=== PATIENT | female | born 1965 ===

== ENCOUNTER 2017-06-26 10:11 | Emergency (ER) | payer OTHER ==
[2017-06-26] MEDS ORDERED: Albuterol-Ipratrop 3 mg / 0.5 (3 ml) UD ONE (10:33)
[2017-06-26] MEDS ORDERED: Albuterol-Ipratrop 3 mg / 0.5 (3 ml) UD INH STA ×3 (10:56→10:57)
--- NOTE | 2017-06-26 11:28 | C.PDOC ---
History Of Present Illness 52-year-old female, PMHx includes asthma, presents to the emergency department with complaints of coughing and wheezing, that started yesterday. Patient has never been intubated in past. States this feels similar to prior asthma exacerbation. Denies nausea/vomiting, fevers, chills, or any other associated symptoms. No other complaints at this time. Time Seen by Provider: 06/26/17 10:36 Chief Complaint (Nursing): Shortness Of Breath History Per: Patient History/Exam Limitations: no limitations Past Medical History Reviewed: Historical Data, Nursing Documentation, Vital Signs Vital Signs: Last Vital Signs Temp 97.7 F 06/26/17 10:14 Pulse 101 H 06/26/17 10:14 Resp 23 06/26/17 10:14 BP 155/98 H 06/26/17 10:14 Pulse Ox 99 06/26/17 11:29 - Medical History PMH: Asthma, Depression, Diabetes, Fractures (right ankle), HTN, Hypercholesterolemia Denies: Chronic Kidney Disease - [facility] Procedures APPLICATION OF SPLINT (03/21/14) Family History: States: No Known Family Hx - Social History Hx Tobacco Use: No Hx Alcohol Use: No Hx Substance Use: No - Immunization History Hx Tetanus Toxoid Vaccination: Yes Hx Influenza Vaccination: Yes Hx Pneumococcal Vaccination: Yes Review Of Systems Except As Marked, All Systems Reviewed And Found Negative. Constitutional: Negative for: Fever, Chills Cardiovascular: Negative for: Chest Pain Respiratory: Positive for: Cough, Wheezing Gastrointestinal: Negative for: Nausea, Vomiting Musculoskeletal: Negative for: Back Pain Neurological: Negative for: Weakness, Headache, Dizziness Physical Exam - Physical Exam Appears: Non-toxic, No Acute Distress, Other (speaking in full sentences) Skin: Warm, Dry, No Rash Head: Atraumatic, Normacephalic Eye(s): bilateral: Normal Inspection, PERRL Nose: Normal Oral Mucosa: Moist Lips: Normal Appearing Neck: Normal ROM Cardiovascular: Rhythm Regular, No Murmur Respiratory: No Accessory Muscle Use, Wheezing (scattered) Gastrointestinal/Abdominal: Soft, No Tenderness Extremity: Normal ROM Neurological/Psych: Oriented x3, Normal Speech ED Course And Treatment O2 Sat by Pulse Oximetry: 99 Medical Decision Making Medical Decision Making: mild asthma exacerbation - roberto katz reasess 1150: pt states she feels improved. asking for dc. lung clear. does not wish for further obs in hospital. has nebs at home. Disposition - Disposition Referrals: [facility] [Outside] [email or web address] [Outside] [facility] [Outside] Disposition: HOME/ ROUTINE Disposition Time: 11:52 Condition: STABLE Additional Instructions: please follow up with your doctor. return to er with worsening symptoms or concerns. Prescriptions: Prednisone 50 mg PO DAILY #4 tablet Instructions: Asthma (ED) Forms: [employer] (Bhutanese) - Clinical Impression Clinical Impression: Asthma - Scribe Statement The provider has reviewed the documentation as recorded by the Scribe (Deya Guevara) All medical record entries made by the Scribe were at my direction and personally dictated by me. I have reviewed the chart and agree that the record accurately reflects my personal performance of the history, physical exam, medical decision making, and the department course for this patient. I have also personally directed, reviewed, and agree with the discharge instructions and disposition.
--- NOTE | 2017-06-26 11:53 | RAD ---
HISTORY: COMPARISON: No prior. TECHNIQUE: Chest PA and lateral FINDINGS: LINES AND TUBES: None. LUNG AND PLEURA: The lungs are well inflated and clear. HEART AND MEDIASTINUM: The heart is not enlarged. The hilar and mediastinal contours are within normal limits. SKELETAL STRUCTURES: The bony structures are within normal limits for the patient's age. VISUALIZED UPPER ABDOMEN: Normal. OTHER FINDINGS: Again seen is a small hiatal hernia. IMPRESSION: No active pulmonary disease.
[2017-06-26 11:57] VITALS: BP 140/88; PULSE 90; RESP 18; TEMP 98; O2SAT 98
== END 2017-06-26 11:58 | disposition home or self-care (01) ==
LOC: C.ER 10:11
DX: J45.909 Unspecified asthma, uncomplicated (principal)

== ENCOUNTER 2017-07-12 13:17 | Inpatient (IN) | payer OTHER ==
[2017-07-12] MEDS ORDERED: Albuterol-Ipratrop 3 mg / 0.5 (3 ml) UD INH STA ×3 (13:45→13:46)
[2017-07-12] MEDS ORDERED: MethylPREDNISolone 40 mg Vial IVP STA (13:46)
--- NOTE | 2017-07-12 13:57 | C.PDOC ---
History Of Present Illness 52 y/o female, past history of asthma, presents to ED with c/o wheezing and cough, worsening over the last few days. Patient was seen in this ER for similar symptoms yesterday. Notes she finished her prednisone. Denies fever, chills, nausea, vomiting, chest pain, or other associated symptoms. Time Seen by Provider: 07/12/17 13:36 Chief Complaint (Nursing): Cough, Cold, Congestion History Per: Patient History/Exam Limitations: no limitations Onset/Duration Of Symptoms: Days Current Symptoms Are (Timing): Worse Current Respiratory Medications: See Home Med List Associated Symptoms: denies: Fever, Chills, Chest Pain, Bloody Cough, Dizziness Past Medical History Reviewed: Historical Data, Nursing Documentation, Vital Signs Vital Signs: Last Vital Signs Temp 98.1 F 07/12/17 13:33 Pulse 97 H 07/12/17 13:33 Resp 22 07/12/17 13:33 BP 147/83 07/12/17 13:33 Pulse Ox 97 07/12/17 15:39 - Medical History PMH: Asthma, Depression, Diabetes, Fractures (right ankle), HTN, Hypercholesterolemia - [facility] Procedures APPLICATION OF SPLINT (03/21/14) Family History: States: Unknown Family Hx - Social History Hx Tobacco Use: No Hx Alcohol Use: No Hx Substance Use: No - Immunization History Hx Tetanus Toxoid Vaccination: Yes Hx Influenza Vaccination: Yes Hx Pneumococcal Vaccination: Yes Review Of Systems Except As Marked, All Systems Reviewed And Found Negative. Constitutional: Negative for: Fever, Chills Respiratory: Positive for: Cough, Wheezing. Negative for: Shortness of Breath Gastrointestinal: Negative for: Nausea, Vomiting, Abdominal Pain Skin: Negative for: Rash Neurological: Negative for: Headache, Dizziness Physical Exam - Physical Exam Appears: Non-toxic, No Acute Distress Skin: Normal Color, Warm, Dry Head: Atraumatic, Normacephalic Oral Mucosa: Moist Chest: Symmetrical Cardiovascular: Rhythm Regular Respiratory: Normal Breath Sounds, No Rales, No Rhonchi, Wheezing Gastrointestinal/Abdominal: Normal Exam, Soft, No Tenderness, No Rebound Back: Normal Inspection Extremity: Normal ROM, Capillary Refill (< 2 sec.) Neurological/Psych: Oriented x3, Normal Speech, Normal Cognition ED Course And Treatment - Laboratory Results Result Diagrams: 07/12/17 14:03 07/12/17 14:03 O2 Sat by Pulse Oximetry: 97 (RA) Pulse Ox Interpretation: Normal - Radiology CXR: Interpreted by Me CXR Interpretation: Yes: No Acute Disease Medical Decision Making Medical Decision Making: Plan: CxR, labs, duonebs, prednisone Progress: Spoke with Dr. Lopez, who request to Dr. Nahum Delcid for admission. Case discussed with Dr. Nahum Delcid who accepts pt under his service. Disposition - Disposition Disposition: HOSPITALIZED Disposition Time: 16:04 Condition: STABLE - Clinical Impression Clinical Impression: Asthma - Scribe Statement The provider has reviewed the documentation as recorded by the Scribe SM All medical record entries made by the Scribe were at my direction and personally dictated by me. I have reviewed the chart and agree that the record accurately reflects my personal performance of the history, physical exam, medical decision making, and the department course for this patient. I have also personally directed, reviewed, and agree with the discharge instructions and disposition. Decision To Admit - Pt Status Changed To: Hospital Disposition Of: Inpatient - Admit Certification Admit to Inpatient:: After my assessment, the patient will require hospitalization for at least two midnights. This is because of the severity of symptoms shown, intensity of services needed, and/or the medical risk in this patient being treated as an outpatient. - InPatient: Physician Admission Certification: I certify that this patient requires 2 or more midnights of care for the following reason:: pt with asthma, not imnproving oupt, needs iv steriods, persistent wheezing. - . Bed Request Type: Regular Admitting Physician: Dre Delcid Patient Diagnosis: Asthma
[2017-07-12] MEDS ORDERED: Albuterol-Ipratrop 3 mg / 0.5 (3 ml) UD ONE ×2 (14:03→20:38)
--- NOTE | 2017-07-12 14:08 | RAD ---
HISTORY: SOB COMPARISON: Chest radiograph dated 06/26/2017. TECHNIQUE: Chest PA and lateral FINDINGS: LUNGS: No active pulmonary disease. PLEURA: No significant pleural effusion identified. No pneumothorax apparent. CARDIOVASCULAR: Normal. OSSEOUS STRUCTURES: No significant abnormalities. VISUALIZED UPPER ABDOMEN: Normal. OTHER FINDINGS: Small to moderate hiatal hernia redemonstrated. IMPRESSION: No active disease.
[2017-07-12 14:12] LABS: BASO # 0.1 K/uL (0.0-0.2); BASO % 0.5 % (0.0-2.0); EOS % 7.5 % (0.0-4.0); HEMATOCRIT 35.6 % (34.0-47.0); LYMPH # 3.2 K/uL (1.0-4.3); LYMPH % 22.6 % (20.0-40.0); MEAN CELL VOLUME 79.8 fL (81.0-99.0); MEAN CORPUSCULAR HEMOGLOBIN 25.4 pg (27.0-31.0); MEAN CORPUSCULAR HGB CONC 31.9 g/dL (33.0-37.0); MEAN PLATELET VOLUME 9.3 fL (7.2-11.7); MONO # 0.5 K/uL (0.0-0.8); MONO % 3.9 % (0.0-10.0)
[2017-07-12 14:22] LABS: INR 0.9
[2017-07-12 14:28] LABS: ALKALINE PHOSPHATASE 95 U/L (38-126); ALT/SGPT 35 U/L (9-52); AST/SGOT 16 U/L (14-36); BILIRUBIN,TOTAL 0.4 mg/dL (0.2-1.3); BLOOD UREA NITROGEN 10 mg/dL (7-17); CALCIUM 8.3 mg/dl (8.6-10.4); CARBON DIOXIDE 25 mmol/L (22-30); CHLORIDE 99 mmol/L (98-107); GFR AFRICAN-AMERICAN > 60; GLUCOSE,RANDOM 217 mg/dL (65-105); POTASSIUM 3.7 mmol/L (3.6-5.2); SODIUM 133 mmol/L (132-148); TOTAL PROTEIN 8.3 g/dL (6.3-8.3)
[2017-07-12 14:31] LABS: ALB/GLOB RATIO 0.9 (1.0-2.1)
[2017-07-12 16:29] LABS: RBC URINE 22 /hpf (0-3); URINE BACTERIA RARE (<OCC); URINE BILIRUBIN NEGATIVE (NEGATIVE); URINE BLOOD 2+ (NEGATIVE); URINE COLOR Yellow (YELLOW); URINE GLUCOSE (UA) 3+ mg/dL (Normal); URINE KETONE 1+ mg/dL (NEGATIVE); URINE LEUKOCYTE ESTERASE NEG Leu/uL (Negative); URINE PROTEIN NEGATIVE (NEGATIVE); URINE UROBILINOGEN NORMAL mg/dL (0.2-1.0); WBC URINE 2 /hpf (0-5)
--- NOTE | 2017-07-12 16:31 | CP.PCM.HP ---
History of Present Illness - History of Present Illness History of Present Illness: A 52-year-old female with PMHasthma, depression, DM, HTN and hypercholesterolemia presents to the ER for evaluation of coughing. C/O - coughing for the last few days. Insidious in onset, progressive, 10-12 bouts per day, dry. C status O displeasing for the last few days. Associated with coughing. Patient states that she was seen in the ER yesterday for similar complaints. No C/O - fever, chills, nausea, vomiting, chest pain. Present on Admission - Present on Admission Any Indicators Present on Admission: No Past Patient History - Past Medical History & Family History Past Medical History?: Yes - Past Social History Smoking Status: Never Smoked - CARDIAC Hx Hypercholesterolemia: Yes Hx Hypertension: Yes - PULMONARY Hx Asthma: Yes - NEUROLOGICAL Hx Neurological Disorder: No - HEENT Hx HEENT Problems: No - RENAL Hx Chronic Kidney Disease: No - ENDOCRINE/METABOLIC Hx Endocrine Disorders: Yes Hx Diabetes Mellitus Type 2: Yes - HEMATOLOGICAL/ONCOLOGICAL Hx Blood Disorders: No - INTEGUMENTARY Hx Dermatological Problems: No - MUSCULOSKELETAL/RHEUMATOLOGICAL Hx Fractures: Yes (right ankle) - GASTROINTESTINAL Hx Gastrointestinal Disorders: No - GENITOURINARY/GYNECOLOGICAL Hx Genitourinary Disorders: No - PSYCHIATRIC Hx Depression: Yes Hx Substance Use: No - SURGICAL HISTORY Other/Comment: right breast biopsy - ANESTHESIA Hx Anesthesia: Yes Hx Anesthesia Reactions: No Hx Malignant Hyperthermia: No Meds Allergies/Adverse Reactions: Allergies Allergy/AdvReac Type Severity Reaction Status Date / Time No Known Allergies Allergy Verified 07/12/17 13:35 Physical Exam - Constitutional Appears: Well - Head Exam Head Exam: ATRAUMATIC, NORMAL INSPECTION, NORMOCEPHALIC - Eye Exam Eye Exam: EOMI, Normal appearance, PERRL Pupil Exam: NORMAL ACCOMODATION, PERRL - ENT Exam ENT Exam: Mucous Membranes Moist, Normal Exam - Neck Exam Neck exam: Positive for: Normal Inspection - Respiratory Exam Respiratory Exam: Decreased Breath Sounds - Cardiovascular Exam Cardiovascular Exam: REGULAR RHYTHM, +S1, +S2 - GI/Abdominal Exam GI & Abdominal Exam: Diminished Bowel Sounds, Soft - Rectal Exam Rectal Exam: Deferred Results - Vital Signs Recent Vital Signs: Last Vital Signs Temp 98.1 F 07/12/17 13:33 Pulse 97 H 07/12/17 13:33 Resp 22 07/12/17 13:33 BP 147/83 07/12/17 13:33 Pulse Ox 97 07/12/17 16:05 - Labs Result Diagrams: 07/14/17 08:02 07/14/17 08:02 Labs: Laboratory Results - last 24 hr 07/12/17 07/12/17 07/12/17 13:44 14:03 14:03 WBC 14.0 H RBC 4.47 Hgb 11.4 Hct 35.6 MCV 79.8 L D MCH 25.4 L MCHC 31.9 L RDW 16.0 H Plt Count 288 MPV 9.3 Neut % (Auto) 65.5 Lymph % (Auto) 22.6 [place] % (Auto) 3.9 Eos % (Auto) 7.5 H Baso % (Auto) 0.5 Neut # 9.2 H Lymph # 3.2 [place] # 0.5 Eos # 1.0 H Baso # 0.1 PT 10.4 INR 0.9 APTT 27 Sodium Potassium Chloride Carbon Dioxide Anion Gap BUN Creatinine Est GFR ( Amer) Est GFR (Non-Af Amer) POC Glucose (mg/dL) 257 H Random Glucose Calcium Total Bilirubin AST ALT Alkaline Phosphatase Total Protein Albumin Globulin Albumin/Globulin Ratio Urine HCG, Qual 07/12/17 07/12/17 14:03 15:55 WBC RBC Hgb Hct MCV MCH MCHC RDW Plt Count MPV Neut % (Auto) Lymph % (Auto) [place] % (Auto) Eos % (Auto) Baso % (Auto) Neut # Lymph # [place] # Eos # Baso # PT INR APTT Sodium 133 Potassium 3.7 Chloride 99 Carbon Dioxide 25 Anion Gap 13 BUN 10 Creatinine 0.5 L Est GFR ( Amer) > 60 Est GFR (Non-Af Amer) > 60 POC Glucose (mg/dL) Random Glucose 217 H Calcium 8.3 L Total Bilirubin 0.4 AST 16 ALT 35 Alkaline Phosphatase 95 Total Protein 8.3 Albumin 4.0 Globulin 4.3 H Albumin/Globulin Ratio 0.9 L Urine HCG, Qual Negative
[2017-07-12] MEDS: Albuterol-Ipratrop 3 mg / 0.5 (3 ml) UD INH SCH (20:35)
[2017-07-12] MEDS: Fluticasone-Salmeterol 250-50mcg Diskus INH SCH (20:35)
[2017-07-12 21:19] VITALS: RESP 20
[2017-07-12] MEDS ORDERED: (Novolog) Insulin Aspart, Recombinant 100 u/ml 10 ml vial SC ONE (21:30)
[2017-07-12] MEDS: MethylPREDNISolone 40 mg Vial IVP SCH (22:18)
[2017-07-12] MEDS ORDERED: Albuterol HFA 90 mcg/actuation (8 g) IH SCH (23:45)
[2017-07-12] MEDS ORDERED: (Lantus) Insulin Glargine, Recombinant SC STA (23:49)
[2017-07-13] MEDS: Albuterol-Ipratrop 3 mg / 0.5 (3 ml) UD INH SCH ×4 (02:13→20:06)
[2017-07-13] MEDS: MethylPREDNISolone 40 mg Vial IVP SCH ×3 (06:20→22:11)
--- NOTE | 2017-07-13 06:52 | CON ---
LOCATION: In the room 370. HISTORY OF PRESENT ILLNESS: This is a 52-year-old female with known history of type 2 insulin-requiring diabetes, presenting here with acute exacerbation of asthmatic bronchitis and started on IV steroid therapy as given with supervening hyperglycemic accelerations thereof. PAST MEDICAL HISTORY: As mentioned above, history of type 2 diabetes, currently on a combination of NPH given as 20 units at bedtime and glipizide given as 10 mg b.i.d. before meals as ordered. History of hypertension and dyslipidemia. FAMILY HISTORY: Positive for diabetes and hypertension. SOCIAL HISTORY: The patient has supportive family. No known substance use. REVIEW OF SYSTEMS: As mentioned above. Admits to generalized body weakness with easy fatigability and tiredness and suboptimal energy level. Also admits to episodic bouts of dizziness and lightheadedness, worse on the day of admission. No chest pains, palpitations, or PNDs. Her oral intake has been variable with nausea, dyspepsia and episodic vomiting episodes. Also admits to marked polyuria, nocturia, polydipsia, and about a 5-pound or so weight loss. We will obtain serum chemistries and supplement accordingly as needed. I also discussed with the patient at bedside regarding the need for home glucose monitoring to optimize metabolic control. We will follow with you. Mariluz Medrano MD
[2017-07-13] MEDS ORDERED: (Novolog) Insulin Aspart, Recombinant 100 u/ml 10 ml vial SC SCH ×2 (07:30)
--- NOTE | 2017-07-13 07:38 | CON ---
LOCATION: In room 370. HISTORY OF PRESENT ILLNESS: This is a 52-year-old female with known history of type 2 insulin-requiring diabetes, presenting here with acute exacerbation of asthmatic bronchitis and started on IV steroid therapy with supervening hyperglycemic accelerations, and is now being referred for diabetic evaluation and management. PAST MEDICAL HISTORY: As mentioned above, history of type 2 insulin-requiring diabetes, currently on a combination of NPH given as 20 units at bedtime with glipizide given as 10 mg once daily as ordered, history of hypertension and dyslipidemia, history of chronic asthmatic bronchitis with frequent admissions for exacerbations of the same. FAMILY HISTORY: Positive for diabetes and hypertension. SOCIAL HISTORY: The patient has a supportive family. No known substance use. REVIEW OF SYSTEMS: As mentioned above, admits to generalized body weakness with episodic bouts of dizziness and lightheadedness, worse on the day of admission. No chest pains, palpitations or PNDs, but admits to progressive shortness of breath, initially on exertion and then at rest, with paroxysmal nocturnal dyspnea. Her oral intake has been variable with nausea, dyspepsia and vague upper abdominal pains. Also admits to marked polyuria, nocturia, polydipsia, and about a 5-pound or so weight loss. PHYSICAL EXAMINATION GENERAL: This is an overweight female, in no apparent distress. VITAL SIGNS: Blood pressure 140/90, pulse of 100 beats per minute and regular, temperature 99, respirations 20. Height is 5 feet 4 inches, weight is 190 pounds. HEENT: Head is normocephalic. Eyes anicteric with pink conjunctivae. Funduscopy not possible at this time. Ears, nose, and throat otherwise normal. NECK: Supple. Thyroid gland is normal in size. No carotid bruits or cervical adenopathy. CARDIOPULMONARY: Adynamic precordium. S1 and S2 is rapid and regular. LUNGS: Show scattered rhonchi and bilateral expiratory wheezing. ABDOMEN: Flat, soft with positive bowel sounds. EXTREMITIES: No peripheral edema. Pulses are +2 bilaterally. LABORATORY DATA: The latest random glucose now is over 500 mg/dL. The latest chemistry showed BUN of 10, sodium 133, potassium 3.7, chloride 99, CO2 of 25, glucose 217, and creatinine 0.5. ASSESSMENT: This is a 52-year-old female with uncontrolled and decompensated type 2 insulin-requiring diabetes, presenting here with acute exacerbation of asthmatic bronchitis with marked hyperglycemic accelerations related to the intercurrent intravenous steroid therapy with increased insulin resistance thereof. PLAN OF MANAGEMENT: We will modify the current insulin regimen and switch her over to a more basal and bolus insulin drug combination, which is physiologic, and start her with Lantus given as 30 units subcu to start tonight, and we will increase to 40 units subcu at bedtime daily as ordered. We will also add NovoLog given as 12 units subcu t.i.d. before meals to start at breakfast time tomorrow morning as ordered. We will modify the coverage scale to obviate hypoglycemia and detailed orders have been given. A hemoglobin A1c will be done to confirm tight glycemic control is ordered. We will follow. Mariluz Medrano MD
[2017-07-13] MEDS: (Novolog) Insulin Aspart, Recombinant 100 u/ml 10 ml vial SC SCH ×7 (08:40→22:07)
[2017-07-13] MEDS: Fluticasone-Salmeterol 250-50mcg Diskus INH SCH ×2 (10:02→20:07)
[2017-07-13] MEDS: Enoxaparin 40 mg Syringe SC SCH (10:44)
[2017-07-13] MEDS: Pantoprazole 40 mg EC Tab PO SCH (10:45)
[2017-07-13] MEDS: GlipiZIDE 10 mg SR Tab PO SCH (10:45)
[2017-07-13] MEDS: Azithromycin 500 MG in Sodium Chloride 0.9% 250 ML IVPB SCH (10:50)
--- NOTE | 2017-07-13 12:40 | PN ---
ENDO FOLLOWUP NOTE LOCATION: In room 370. SUBJECTIVE: This is a 52-year-old female with recent uncontrolled type 2 insulin-requiring diabetes, presenting here with acute exacerbation of asthmatic bronchitis and started on IV steroid therapy with supervening hyperglycemic accelerations as expected thereof. The glucose levels today have ranged from 351 to 386 and 468 mg/dL. The latest chemistry showed a BUN of 10, sodium 133, potassium 3.7, chloride 99, CO2 of 25, glucose 217, and creatinine 0.5. So at this time, we will continue the same basal and bolus insulin regimen to allow per dosing equilibration and continue the low-dose correction scale using NovoLog insulin as given. We will also increase the NovoLog to 20 units subcu t.i.d. before meals, to start at dinnertime today as ordered. We will also continue the basal insulin given as Lantus at 40 units subcu at bedtime daily as given. We will titrate incrementally as indicated to optimize metabolic control. We will follow. Mariluz Medrano MD
--- NOTE | 2017-07-13 16:51 | CP.PCM.CON ---
History of Present Illness - History of Present Illness History of Present Illness: Reason for consultation: Asthma 52 y/o F with a PMHx of Asthma and DMII presents with asthma exacerbation and dry cough. Patient has been hospitalized multiple times in the past for asthma but never intubated. Patient used nebulizer treatment at home but did not help. Patient was seen and examined at bedside. Patient sitting comfortably. Patient says she has a dry cough but denies fever, chills, SOB, or chest pain at this time. Patient was not able to sleep last night as she felt very "jittery and awake." Patient reports she often has asthma exacerbations during winter. Patient denies headache, dizziness, n/v, constipation, diarrhea, abdominal pain , and dysuria. Allergies: NKDA PMHx: Diabetes, Asthma PSHx: breast biopsy SocialHx: Patient is former smoker quit 15 years ago (1 pack a day for 15 years ). Denies alcohol and drug use. Review of Systems - Review of Systems All systems: reviewed and no additional remarkable complaints except (shortness of breath and cough) Past Patient History - Past Medical History & Family History Past Medical History?: Yes - Past Social History Smoking Status: Former Smoker - CARDIAC Hx Cardiac Disorders: Yes Hx Hypercholesterolemia: Yes Hx Hypertension: Yes - PULMONARY Hx Respiratory Disorders: Yes Hx Asthma: Yes - NEUROLOGICAL Hx Neurological Disorder: No - HEENT Hx HEENT Problems: No - RENAL Hx Chronic Kidney Disease: No - ENDOCRINE/METABOLIC Hx Endocrine Disorders: Yes Hx Diabetes Mellitus Type 2: Yes - HEMATOLOGICAL/ONCOLOGICAL Hx Blood Disorders: No - INTEGUMENTARY Hx Dermatological Problems: No - MUSCULOSKELETAL/RHEUMATOLOGICAL Hx Musculoskeletal Disorders: Yes Hx Falls: No Hx Fractures: Yes (right ankle) - GASTROINTESTINAL Hx Gastrointestinal Disorders: No - GENITOURINARY/GYNECOLOGICAL Hx Genitourinary Disorders: No - PSYCHIATRIC Hx Psychophysiologic Disorder: Yes Hx Depression: Yes Hx Substance Use: No - SURGICAL HISTORY Hx Surgeries: Yes Hx Tubal Ligation: Yes Other/Comment: right breast biopsy - ANESTHESIA Hx Anesthesia: Yes Hx Anesthesia Reactions: No Hx Malignant Hyperthermia: No Meds Allergies/Adverse Reactions: Allergies Allergy/AdvReac Type Severity Reaction Status Date / Time No Known Allergies Allergy Verified 07/12/17 13:35 - Medications Medications: Current Medications Acetaminophen (Tylenol 325mg Tab) 650 mg PO Q8 PRN PRN Reason: pain Last Admin: 07/12/17 21:28 Dose: 650 mg Albuterol (Ventolin Hfa 90 Mcg/Actuation (8 G)) 1 puff IH RQ6 [facility] Albuterol/Ipratropium (Duoneb 3 Mg/0.5 Mg (3 Ml) Ud) 3 ml INH RQ6 [facility] Last Admin: 07/13/17 13:25 Dose: 3 ml Amlodipine Besylate (Norvasc) 5 mg PO DAILY [facility] Last Admin: 07/13/17 10:45 Dose: 5 mg Aspirin (Ecotrin) 81 mg PO DAILY [facility] Last Admin: 07/13/17 10:45 Dose: 81 mg Enoxaparin Sodium (Lovenox) 40 mg SC DAILY [facility] Last Admin: 07/13/17 10:44 Dose: 40 mg Furosemide (Lasix) 40 mg IVP DAILY [facility] Last Admin: 07/13/17 10:45 Dose: 40 mg Glipizide (Glucotrol Xl) 10 mg PO DAILY [facility] Last Admin: 07/13/17 10:45 Dose: 10 mg Azithromycin 500 mg/ Sodium (Chloride) 250 mls @ 250 mls/hr IVPB DAILY [facility] Last Admin: 07/13/17 10:50 Dose: 250 mls/hr Insulin Aspart (Novolog) 0 unit SC ACHS [facility] PRN Reason: Protocol Last Admin: 07/13/17 12:32 Dose: 6 unit Insulin Aspart (Novolog) 20 unit SC AC [facility]H Insulin Glargine (Lantus) 40 unit SC HS [facility] Methylprednisolone (Solu-Medrol) 20 mg IVP Q8 [facility] Last Admin: 07/13/17 14:33 Dose: 20 mg Montelukast Sodium (Singulair) 10 mg PO HS [facility] Last Admin: 07/12/17 22:18 Dose: 10 mg Pantoprazole Sodium (Protonix Ec Tab) 40 mg PO DAILY [facility] Last Admin: 07/13/17 10:45 Dose: 40 mg Fluticasone/Salmeterol (Advair Diskus 250/50) 1 puff INH RQ12 [facility] Last Admin: 07/13/17 10:02 Dose: Not Given Physical Exam - Constitutional Appears: No Acute Distress - Head Exam Head Exam: ATRAUMATIC, NORMOCEPHALIC - Eye Exam Eye Exam: Normal appearance - ENT Exam ENT Exam: Mucous Membranes Moist - Neck Exam Neck exam: Positive for: Normal Inspection - Respiratory Exam Respiratory Exam: Rhonchi, Wheezes - Cardiovascular Exam Cardiovascular Exam: REGULAR RHYTHM - GI/Abdominal Exam GI & Abdominal Exam: Normal Bowel Sounds, Soft - Extremities Exam Extremities exam: Positive for: normal inspection - Neurological Exam Neurological exam: Alert, Oriented x3 Results - Vital Signs Recent Vital Signs: Last Vital Signs Temp 98 F 07/13/17 15:55 Pulse 111 H 07/13/17 15:55 Resp 20 07/13/17 15:55 BP 119/71 07/13/17 15:55 Pulse Ox 98 07/13/17 15:55 - Labs Result Diagrams: 07/14/17 08:02 07/14/17 08:02 Labs: Laboratory Results - last 24 hr 07/12/17 07/13/17 07/13/17 21:26 00:06 07:24 POC Glucose (mg/dL) > 500 H* 386 H 351 H 07/13/17 07/13/17 11:43 16:29 POC Glucose (mg/dL) 468 H* 359 H Assessment & Plan (1) Exacerbation of asthma Status: Acute Comment: 52 y/o F with a PMHx of Asthma and DMII presents with asthma exacerbation. IV steroids, nebulizer treatment. Continue antibiotics. Peak flow q. shift. Pulmonary function test
[2017-07-13] MEDS ORDERED: Mometasone 220 mcg/puff-14 puff Inh INH SCH ×2 (18:00)
--- NOTE | 2017-07-13 18:57 | CP.PCM.PN ---
Subjective - Date & Time of Evaluation Date of Evaluation: 07/13/17 Time of Evaluation: 09:00 - Subjective Subjective: clinically same Objective - Vital Signs/Intake and Output Vital Signs (last 24 hours): Temp Pulse Resp BP Pulse Ox 98 F 111 H 20 119/71 98 07/13/17 15:55 07/13/17 15:55 07/13/17 15:55 07/13/17 15:55 07/13/17 15:55 Intake and Output: 07/13/17 07/13/17 06:59 18:59 Intake Total 200 500 Balance 200 500 - Medications Medications: Current Medications Acetaminophen (Tylenol 325mg Tab) 650 mg PO Q8 PRN PRN Reason: pain Last Admin: 07/12/17 21:28 Dose: 650 mg Albuterol (Ventolin Hfa 90 Mcg/Actuation (8 G)) 1 puff IH RQ6 [facility] Albuterol/Ipratropium (Duoneb 3 Mg/0.5 Mg (3 Ml) Ud) 3 ml INH RQ6 [facility] Last Admin: 07/13/17 13:25 Dose: 3 ml Amlodipine Besylate (Norvasc) 5 mg PO DAILY [facility] Last Admin: 07/13/17 10:45 Dose: 5 mg Aspirin (Ecotrin) 81 mg PO DAILY [facility] Last Admin: 07/13/17 10:45 Dose: 81 mg Enoxaparin Sodium (Lovenox) 40 mg SC DAILY [facility] Last Admin: 07/13/17 10:44 Dose: 40 mg Furosemide (Lasix) 40 mg IVP DAILY [facility] Last Admin: 07/13/17 10:45 Dose: 40 mg Glipizide (Glucotrol Xl) 10 mg PO DAILY [facility] Last Admin: 07/13/17 10:45 Dose: 10 mg Azithromycin 500 mg/ Sodium (Chloride) 250 mls @ 250 mls/hr IVPB DAILY [facility] Last Admin: 07/13/17 10:50 Dose: 250 mls/hr Insulin Aspart (Novolog) 0 unit SC ACHS [facility] PRN Reason: Protocol Last Admin: 07/13/17 17:53 Dose: 5 unit Insulin Aspart (Novolog) 20 unit SC AC [facility] Last Admin: 07/13/17 17:51 Dose: 20 unit Insulin Glargine (Lantus) 40 unit SC HS [facility] Methylprednisolone (Solu-Medrol) 20 mg IVP Q8 [facility] Last Admin: 07/13/17 14:33 Dose: 20 mg Montelukast Sodium (Singulair) 10 mg PO HS [facility] Last Admin: 07/12/17 22:18 Dose: 10 mg Pantoprazole Sodium (Protonix Ec Tab) 40 mg PO DAILY [facility] Last Admin: 07/13/17 10:45 Dose: 40 mg Fluticasone/Salmeterol (Advair Diskus 250/50) 1 puff INH RQ12 [facility] Last Admin: 07/13/17 10:02 Dose: Not Given - Labs Labs: 07/12/17 14:03 07/12/17 14:03 PT 10.4 SECONDS (9.7-12.2) 07/12/17 14:03 INR 0.9 07/12/17 14:03 APTT 27 SECONDS (21-34) 07/12/17 14:03 - Constitutional Appears: Well - Head Exam Head Exam: ATRAUMATIC, NORMAL INSPECTION, NORMOCEPHALIC - Eye Exam Eye Exam: EOMI, Normal appearance, PERRL Pupil Exam: NORMAL ACCOMODATION, PERRL - ENT Exam ENT Exam: Mucous Membranes Moist, Normal Exam - Neck Exam Neck Exam: Full ROM, Normal Inspection. absent: Lymphadenopathy - Respiratory Exam Respiratory Exam: Decreased Breath Sounds - Cardiovascular Exam Cardiovascular Exam: REGULAR RHYTHM, +S1, +S2 - GI/Abdominal Exam GI & Abdominal Exam: Soft, Diminished Bowel Sounds - Rectal Exam Rectal Exam: Deferred Assessment and Plan (1) Asthma Status: Chronic (2) Allergic Status: Acute (3) Anemia Status: Acute (4) Ankle fracture Status: Acute (5) Ankle fracture, left Status: Acute (6) Bronchitis Status: Acute (7) Cellulitis Status: Acute (8) Exacerbation of asthma Status: Acute (9) Hyperglycemia Status: Acute (10) Knee sprain Status: Acute (11) Prophylactic measure Status: Acute (12) Thoracic back pain Status: Acute (13) Diabetes mellitus Status: Chronic - Assessment and Plan (Free Text) Plan: Patient examined. Patient better. Chest x-ray normal. Laboratory investigation shows raised total counts. Continue bronchodilators. Continue aspirin and azithromycin. Continue methylprednisolone. Continue antidiabetic medications.
[2017-07-13] MEDS ORDERED: (Novolog) Insulin Aspart, Recombinant 100 u/ml 10 ml vial SC ONE (21:30)
[2017-07-13] MEDS ORDERED: (Lantus) Insulin Glargine, Recombinant SC SCH (22:00)
[2017-07-13] MEDS ORDERED: (Novolin N) Insulin Human Isophane (NPH) 100 u/ml 10 ml vial SC SCH (22:00)
[2017-07-13] MEDS: Promethazine/Cod 6.25mg-10mg/5ml Syr UD PO SCH (22:10)
[2017-07-14] MEDS: Promethazine/Cod 6.25mg-10mg/5ml Syr UD PO SCH ×6 (00:42→20:08)
[2017-07-14] MEDS: Albuterol-Ipratrop 3 mg / 0.5 (3 ml) UD INH SCH ×4 (01:01→19:18)
[2017-07-14] MEDS: MethylPREDNISolone 40 mg Vial IVP SCH ×3 (06:21→22:10)
[2017-07-14] MEDS: Fluticasone-Salmeterol 250-50mcg Diskus INH SCH (08:09)
[2017-07-14 08:13] LABS: BASO % 0.1 % (0.0-2.0); HEMATOCRIT 33.9 % (34.0-47.0); LYMPH # 1.9 K/uL (1.0-4.3); LYMPH % 11.2 % (20.0-40.0); MEAN CORPUSCULAR HEMOGLOBIN 25.6 pg (27.0-31.0); MEAN PLATELET VOLUME 9.8 fL (7.2-11.7); MONO # 0.9 K/uL (0.0-0.8); MONO % 5.4 % (0.0-10.0); RED CELL DISTRIBUTION WIDTH 15.5 % (11.5-14.5); WHITE BLOOD COUNT 16.7 K/uL (4.8-10.8)
[2017-07-14] MEDS: (Novolog) Insulin Aspart, Recombinant 100 u/ml 10 ml vial SC SCH ×6 (08:30→22:13)
[2017-07-14 09:11] LABS: BLOOD UREA NITROGEN 19 mg/dL (7-17); CALCIUM 8.2 mg/dl (8.6-10.4); CARBON DIOXIDE 25 mmol/L (22-30); CHLORIDE 99 mmol/L (98-107); GFR AFRICAN-AMERICAN > 60; GLUCOSE,RANDOM 287 mg/dL (65-105); POTASSIUM 4.3 mmol/L (3.6-5.2); SODIUM 137 mmol/L (132-148)
[2017-07-14] MEDS: GlipiZIDE 10 mg SR Tab PO SCH (10:32)
[2017-07-14] MEDS: Enoxaparin 40 mg Syringe SC SCH (10:32)
[2017-07-14] MEDS: Pantoprazole 40 mg EC Tab PO SCH (10:32)
[2017-07-14] MEDS: Azithromycin 500 MG in Sodium Chloride 0.9% 250 ML IVPB SCH (10:57)
--- NOTE | 2017-07-14 13:13 | CP.PCM.PN ---
Subjective - Date & Time of Evaluation Date of Evaluation: 07/14/17 Time of Evaluation: 09:00 - Subjective Subjective: the patient seen and examined Feeling and breathing much better Denies fever chills, denies chest pain Objective - Vital Signs/Intake and Output Vital Signs (last 24 hours): Temp Pulse Resp BP Pulse Ox 97.8 F 112 H 20 117/64 93 L 07/14/17 08:00 07/14/17 08:00 07/14/17 08:00 07/14/17 10:32 07/14/17 08:00 Intake and Output: 07/14/17 07/14/17 06:59 18:59 Intake Total 840 Balance 840 - Medications Medications: Current Medications Acetaminophen (Tylenol 325mg Tab) 650 mg PO Q8 PRN PRN Reason: pain Last Admin: 07/12/17 21:28 Dose: 650 mg Albuterol (Ventolin Hfa 90 Mcg/Actuation (8 G)) 1 puff IH RQ6 [facility] Albuterol/Ipratropium (Duoneb 3 Mg/0.5 Mg (3 Ml) Ud) 3 ml INH RQ6 [facility] Last Admin: 07/14/17 07:40 Dose: 3 ml Amlodipine Besylate (Norvasc) 5 mg PO DAILY [facility] Last Admin: 07/14/17 10:32 Dose: 5 mg Aspirin (Ecotrin) 81 mg PO DAILY [facility] Last Admin: 07/14/17 10:32 Dose: 81 mg Enoxaparin Sodium (Lovenox) 40 mg SC DAILY [facility] Last Admin: 07/14/17 10:32 Dose: 40 mg Furosemide (Lasix) 40 mg IVP DAILY [facility] Last Admin: 07/14/17 10:32 Dose: 40 mg Glipizide (Glucotrol Xl) 10 mg PO DAILY [facility] Last Admin: 07/14/17 10:32 Dose: 10 mg Azithromycin 500 mg/ Sodium (Chloride) 250 mls @ 250 mls/hr IVPB DAILY [facility] Last Admin: 07/14/17 10:57 Dose: 250 mls/hr Ceftriaxone Sodium 1 gm/ (Sodium Chloride) 100 mls @ 100 mls/hr IVPB DAILY [facility] Last Admin: 07/14/17 09:51 Dose: 100 mls/hr Insulin Aspart (Novolog) 0 unit SC ACHS [facility] PRN Reason: Protocol Last Admin: 07/14/17 08:30 Dose: 4 unit Insulin Aspart (Novolog) 24 unit SC AC [facility] Insulin Glargine (Lantus) 50 unit SC HS [facility] Methylprednisolone (Solu-Medrol) 20 mg IVP Q8 [facility] Last Admin: 07/14/17 06:21 Dose: 20 mg Montelukast Sodium (Singulair) 10 mg PO HS [facility] Last Admin: 07/13/17 22:12 Dose: 10 mg Pantoprazole Sodium (Protonix Ec Tab) 40 mg PO DAILY [facility] Last Admin: 07/14/17 10:32 Dose: 40 mg Promethazine HCl/Codeine (Phenergan/Codeine Oral Syrup) 5 ml PO Q4 [facility] Last Admin: 07/14/17 09:06 Dose: 5 ml Fluticasone/Salmeterol (Advair Diskus 250/50) 1 puff INH RQ12 [facility] Last Admin: 07/14/17 08:09 Dose: Not Given - Labs Labs: 07/14/17 08:02 07/14/17 08:02 PT 10.4 SECONDS (9.7-12.2) 07/12/17 14:03 INR 0.9 07/12/17 14:03 APTT 27 SECONDS (21-34) 07/12/17 14:03 - Head Exam Head Exam: ATRAUMATIC, NORMOCEPHALIC - ENT Exam ENT Exam: Mucous Membranes Moist - Neck Exam Neck Exam: Normal Inspection - Respiratory Exam Respiratory Exam: Rhonchi - Cardiovascular Exam Cardiovascular Exam: REGULAR RHYTHM - GI/Abdominal Exam GI & Abdominal Exam: Soft, Normal Bowel Sounds Assessment and Plan (1) Exacerbation of asthma Assessment & Plan: Taper IV steroids Continue nebulizer treatment Stable from pulmonary standpoint Status: Acute
--- NOTE | 2017-07-14 18:49 | CP.PCM.PN ---
Subjective - Date & Time of Evaluation Date of Evaluation: 07/14/17 Time of Evaluation: 08:20 - Subjective Subjective: clinically same Objective - Vital Signs/Intake and Output Vital Signs (last 24 hours): Temp Pulse Resp BP Pulse Ox 98.0 F 103 H 20 127/82 94 L 07/14/17 15:00 07/14/17 15:00 07/14/17 15:00 07/14/17 15:00 07/14/17 15:00 Intake and Output: 07/14/17 07/14/17 06:59 18:59 Intake Total 840 850 Balance 840 850 - Medications Medications: Current Medications Acetaminophen (Tylenol 325mg Tab) 650 mg PO Q8 PRN PRN Reason: pain Last Admin: 07/12/17 21:28 Dose: 650 mg Albuterol (Ventolin Hfa 90 Mcg/Actuation (8 G)) 1 puff IH RQ6 [facility] Albuterol/Ipratropium (Duoneb 3 Mg/0.5 Mg (3 Ml) Ud) 3 ml INH RQ6 [facility] Last Admin: 07/14/17 14:12 Dose: 3 ml Amlodipine Besylate (Norvasc) 5 mg PO DAILY [facility] Last Admin: 07/14/17 10:32 Dose: 5 mg Aspirin (Ecotrin) 81 mg PO DAILY [facility] Last Admin: 07/14/17 10:32 Dose: 81 mg Enoxaparin Sodium (Lovenox) 40 mg SC DAILY [facility] Last Admin: 07/14/17 10:32 Dose: 40 mg Furosemide (Lasix) 40 mg IVP DAILY [facility] Last Admin: 07/14/17 10:32 Dose: 40 mg Glipizide (Glucotrol Xl) 10 mg PO DAILY [facility] Last Admin: 07/14/17 10:32 Dose: 10 mg Azithromycin 500 mg/ Sodium (Chloride) 250 mls @ 250 mls/hr IVPB DAILY [facility] Last Admin: 07/14/17 10:57 Dose: 250 mls/hr Ceftriaxone Sodium 1 gm/ (Sodium Chloride) 100 mls @ 100 mls/hr IVPB DAILY [facility] Last Admin: 07/14/17 09:51 Dose: 100 mls/hr Insulin Aspart (Novolog) 0 unit SC ACHS [facility] PRN Reason: Protocol Last Admin: 07/14/17 17:22 Dose: 6 unit Insulin Aspart (Novolog) 24 unit SC AC [facility] Last Admin: 07/14/17 17:23 Dose: 24 unit Insulin Glargine (Lantus) 50 unit SC HS [facility] Methylprednisolone (Solu-Medrol) 20 mg IVP Q8 [facility] Last Admin: 07/14/17 14:48 Dose: 20 mg Montelukast Sodium (Singulair) 10 mg PO HS [facility] Last Admin: 07/13/17 22:12 Dose: 10 mg Pantoprazole Sodium (Protonix Ec Tab) 40 mg PO DAILY [facility] Last Admin: 07/14/17 10:32 Dose: 40 mg Promethazine HCl/Codeine (Phenergan/Codeine Oral Syrup) 5 ml PO Q4 [facility] Last Admin: 07/14/17 16:35 Dose: 5 ml Fluticasone/Salmeterol (Advair Diskus 250/50) 1 puff INH RQ12 [facility] Last Admin: 07/14/17 08:09 Dose: Not Given - Labs Labs: 07/14/17 08:02 07/14/17 08:02 PT 10.4 SECONDS (9.7-12.2) 07/12/17 14:03 INR 0.9 07/12/17 14:03 APTT 27 SECONDS (21-34) 07/12/17 14:03 - Constitutional Appears: Well - Head Exam Head Exam: ATRAUMATIC, NORMAL INSPECTION, NORMOCEPHALIC - Eye Exam Eye Exam: EOMI, Normal appearance, PERRL Pupil Exam: NORMAL ACCOMODATION, PERRL - ENT Exam ENT Exam: Mucous Membranes Moist, Normal Exam - Neck Exam Neck Exam: Full ROM, Normal Inspection. absent: Lymphadenopathy - Respiratory Exam Respiratory Exam: Clear to Ausculation Bilateral, NORMAL BREATHING PATTERN - Cardiovascular Exam Cardiovascular Exam: REGULAR RHYTHM, +S1, +S2. absent: Murmur - GI/Abdominal Exam GI & Abdominal Exam: Soft, Normal Bowel Sounds. absent: Tenderness - Rectal Exam Rectal Exam: Deferred - Extremities Exam Extremities Exam: Full ROM, Normal Capillary Refill, Normal Inspection. absent : Joint Swelling, Pedal Edema - Back Exam Back Exam: NORMAL INSPECTION Assessment and Plan (1) Asthma Status: Chronic (2) Allergic Status: Acute (3) Anemia Status: Acute (4) Ankle fracture Status: Acute (5) Ankle fracture, left Status: Acute (6) Bronchitis Status: Acute (7) Cellulitis Status: Acute (8) Exacerbation of asthma Status: Acute (9) Hyperglycemia Status: Acute (10) Knee sprain Status: Acute (11) Prophylactic measure Status: Acute (12) Thoracic back pain Status: Acute (13) Diabetes mellitus Status: Chronic - Assessment and Plan (Free Text) Plan: Patient examined. Breathing much better. Continue aspirin. Continue ceftriaxone and azithromycin. Continue antidiabetic medications. Continue furosemide. Continue bronchodilators. Continue supportive care.
[2017-07-14] MEDS ORDERED: (Lantus) Insulin Glargine, Recombinant SC SCH (22:00)
--- NOTE | 2017-07-14 22:22 | PN ---
ENDO FOLLOW UP NOTE LOCATION: In the room 317. This is a 52-year-old female presenting here with acute exacerbation of asthmatic bronchitis, currently on IV steroid therapy, which is now being tapered down and supervening hyperglycemic accelerations as expected thereof. Her glucose values today have ranged from 302 to 323 mg/dL. Her hemoglobin A1c is 9.3%, which is really also elevated and indicative of suboptimal metabolic control of diabetic condition even prior to this admission. The latest chemistry showed BUN of 19, sodium 137, potassium 4.3, chloride 99, CO2 25, glucose 287, and creatinine 0.6. So, at this time we will modify her basal and bolus insulin regimen and increase the NovoLog to 24 units subcutaneous t.i.d. before meals to start at dinnertime today as ordered. We will also increase the basal insulin with Lantus to be given at 50 units subcutaneous at bedtime daily to start tonight. We will titrate incrementally as indicated to optimize metabolic control. We will follow. Mariluz Medrano MD
[2017-07-15] MEDS: Promethazine/Cod 6.25mg-10mg/5ml Syr UD PO SCH ×5 (00:05→17:16)
[2017-07-15] MEDS: Albuterol-Ipratrop 3 mg / 0.5 (3 ml) UD INH SCH ×3 (01:46→13:36)
[2017-07-15 02:24] VITALS: O2SAT 95
[2017-07-15] MEDS: MethylPREDNISolone 40 mg Vial IVP SCH ×2 (05:22→14:09)
[2017-07-15] MEDS: (Novolog) Insulin Aspart, Recombinant 100 u/ml 10 ml vial SC SCH ×6 (07:56→17:15)
[2017-07-15] MEDS: Fluticasone-Salmeterol 250-50mcg Diskus INH SCH (09:21)
[2017-07-15] MEDS: GlipiZIDE 10 mg SR Tab PO SCH (09:39)
[2017-07-15] MEDS: Pantoprazole 40 mg EC Tab PO SCH (09:39)
[2017-07-15] MEDS: Enoxaparin 40 mg Syringe SC SCH (09:40)
[2017-07-15] MEDS: Azithromycin 500 MG in Sodium Chloride 0.9% 250 ML IVPB SCH (10:54)
--- NOTE | 2017-07-15 11:44 | CP.PCM.PN ---
Subjective - Date & Time of Evaluation Date of Evaluation: 07/15/17 Time of Evaluation: 08:20 - Subjective Subjective: patient seen and examined. Denies cough, denies fever chills, denies chest richar Breathing much improved Stable from pulmonary standpoint Followup in the office Objective - Vital Signs/Intake and Output Vital Signs (last 24 hours): Temp Pulse Resp BP Pulse Ox 97.2 F L 90 20 135/82 95 07/15/17 08:09 07/15/17 08:09 07/15/17 08:09 07/15/17 10:50 07/15/17 08:09 Intake and Output: 07/15/17 07/15/17 06:59 18:59 Intake Total 1280 Balance 1280 - Medications Medications: Current Medications Acetaminophen (Tylenol 325mg Tab) 650 mg PO Q8 PRN PRN Reason: pain Last Admin: 07/12/17 21:28 Dose: 650 mg Albuterol (Ventolin Hfa 90 Mcg/Actuation (8 G)) 1 puff IH RQ6 [facility] Albuterol/Ipratropium (Duoneb 3 Mg/0.5 Mg (3 Ml) Ud) 3 ml INH RQ6 [facility] Last Admin: 07/15/17 07:30 Dose: 3 ml Amlodipine Besylate (Norvasc) 5 mg PO DAILY [facility] Last Admin: 07/15/17 09:39 Dose: 5 mg Aspirin (Ecotrin) 81 mg PO DAILY [facility] Last Admin: 07/15/17 09:40 Dose: 81 mg Enoxaparin Sodium (Lovenox) 40 mg SC DAILY [facility] Last Admin: 07/15/17 09:40 Dose: 40 mg Furosemide (Lasix) 40 mg IVP DAILY [facility] Last Admin: 07/15/17 10:50 Dose: 40 mg Glipizide (Glucotrol Xl) 10 mg PO DAILY [facility] Last Admin: 07/15/17 09:39 Dose: 10 mg Azithromycin 500 mg/ Sodium (Chloride) 250 mls @ 250 mls/hr IVPB DAILY [facility] Last Admin: 07/15/17 10:54 Dose: 250 mls/hr Ceftriaxone Sodium 1 gm/ (Sodium Chloride) 100 mls @ 100 mls/hr IVPB DAILY [facility] Last Admin: 07/15/17 09:41 Dose: 100 mls/hr Insulin Aspart (Novolog) 0 unit SC ACHS [facility] PRN Reason: Protocol Last Admin: 07/15/17 07:56 Dose: Not Given Insulin Aspart (Novolog) 24 unit SC AC [facility] Last Admin: 07/15/17 08:14 Dose: 24 unit Insulin Glargine (Lantus) 50 unit SC HS [facility] Last Admin: 07/14/17 22:11 Dose: 50 units Methylprednisolone (Solu-Medrol) 20 mg IVP Q8 [facility] Last Admin: 07/15/17 05:22 Dose: 20 mg Montelukast Sodium (Singulair) 10 mg PO HS [facility] Last Admin: 07/14/17 22:10 Dose: 10 mg Pantoprazole Sodium (Protonix Ec Tab) 40 mg PO DAILY [facility] Last Admin: 07/15/17 09:39 Dose: 40 mg Promethazine HCl/Codeine (Phenergan/Codeine Oral Syrup) 5 ml PO Q4 [facility] Last Admin: 07/15/17 11:38 Dose: 5 ml Fluticasone/Salmeterol (Advair Diskus 250/50) 1 puff INH RQ12 [facility] Last Admin: 07/15/17 09:21 Dose: Not Given - Labs Labs: 07/14/17 08:02 07/14/17 08:02 PT 10.4 SECONDS (9.7-12.2) 07/12/17 14:03 INR 0.9 07/12/17 14:03 APTT 27 SECONDS (21-34) 07/12/17 14:03 Assessment and Plan (1) Exacerbation of asthma Status: Acute
[2017-07-15 17:04] VITALS: BP 117/73; PULSE 20; TEMP 98.2
--- NOTE | 2017-07-15 17:13 | CP.PCM.PN ---
Subjective - Date & Time of Evaluation Date of Evaluation: 07/15/17 Time of Evaluation: 11:00 - Subjective Subjective: Alert, orientedx3, no sob or chest pains, NAD. Objective - Vital Signs/Intake and Output Vital Signs (last 24 hours): Temp Pulse Resp BP Pulse Ox 97.2 F L 90 20 135/82 95 07/15/17 08:09 07/15/17 08:09 07/15/17 08:09 07/15/17 10:50 07/15/17 08:09 Intake and Output: 07/15/17 07/15/17 06:59 18:59 Intake Total 1280 800 Balance 1280 800 - Medications Medications: Current Medications Acetaminophen (Tylenol 325mg Tab) 650 mg PO Q8 PRN PRN Reason: pain Last Admin: 07/12/17 21:28 Dose: 650 mg Albuterol (Ventolin Hfa 90 Mcg/Actuation (8 G)) 1 puff IH RQ6 [facility] Albuterol/Ipratropium (Duoneb 3 Mg/0.5 Mg (3 Ml) Ud) 3 ml INH RQ6 [facility] Last Admin: 07/15/17 13:36 Dose: 3 ml Amlodipine Besylate (Norvasc) 5 mg PO DAILY [facility] Last Admin: 07/15/17 09:39 Dose: 5 mg Aspirin (Ecotrin) 81 mg PO DAILY [facility] Last Admin: 07/15/17 09:40 Dose: 81 mg Enoxaparin Sodium (Lovenox) 40 mg SC DAILY [facility] Last Admin: 07/15/17 09:40 Dose: 40 mg Furosemide (Lasix) 40 mg IVP DAILY [facility] Last Admin: 07/15/17 10:50 Dose: 40 mg Glipizide (Glucotrol Xl) 10 mg PO DAILY [facility] Last Admin: 07/15/17 09:39 Dose: 10 mg Azithromycin 500 mg/ Sodium (Chloride) 250 mls @ 250 mls/hr IVPB DAILY [facility] Last Admin: 07/15/17 10:54 Dose: 250 mls/hr Ceftriaxone Sodium 1 gm/ (Sodium Chloride) 100 mls @ 100 mls/hr IVPB DAILY [facility] Last Admin: 07/15/17 09:41 Dose: 100 mls/hr Insulin Aspart (Novolog) 0 unit SC ACHS [facility] PRN Reason: Protocol Last Admin: 07/15/17 12:19 Dose: Not Given Insulin Aspart (Novolog) 24 unit SC AC [facility] Last Admin: 07/15/17 12:28 Dose: 24 unit Insulin Glargine (Lantus) 50 unit SC HS [facility] Last Admin: 07/14/17 22:11 Dose: 50 units Methylprednisolone (Solu-Medrol) 20 mg IVP Q8 [facility] Last Admin: 07/15/17 14:09 Dose: 20 mg Montelukast Sodium (Singulair) 10 mg PO HS [facility] Last Admin: 07/14/17 22:10 Dose: 10 mg Pantoprazole Sodium (Protonix Ec Tab) 40 mg PO DAILY [facility] Last Admin: 07/15/17 09:39 Dose: 40 mg Promethazine HCl/Codeine (Phenergan/Codeine Oral Syrup) 5 ml PO Q4 [facility] Last Admin: 07/15/17 11:38 Dose: 5 ml Fluticasone/Salmeterol (Advair Diskus 250/50) 1 puff INH RQ12 [facility] Last Admin: 07/15/17 09:21 Dose: Not Given - Labs Labs: 07/14/17 08:02 07/14/17 08:02 PT 10.4 SECONDS (9.7-12.2) 07/12/17 14:03 INR 0.9 07/12/17 14:03 APTT 27 SECONDS (21-34) 07/12/17 14:03 Assessment and Plan - Assessment and Plan (Free Text) Assessment: Patient is seen and examined, no wheezing. Alert and oriented x 3 days, no sob or chest pains. Cleared by DR Nagel for discharge. Discussed with DR Nahum Delcid, plan to discharge home today on tapering prednisone. Advised to follow up in the office in 1 week.
--- NOTE | 2017-07-15 23:20 | PN ---
DATE: ENDOCRINOLOGY FOLLOWUP LOCATION: Room 370. SUBJECTIVE: This is a 52-year-old female with recent uncontrolled type 2 insulin requiring diabetes, presenting here with acute exacerbation of COPD, currently on a tapering dose of IV steroid therapy as given. Her latest dose regimen is now Solu-Medrol at 20 mg IV piggyback every 8 hours as ordered. Hyperglycemic levels have supervened up, are improving at this time and the latest glucose levels today have ranged from 170 to 215 and 242 mg/dL. It was 456 at bedtime last night. Her latest chemistries include a BUN of 19, sodium 137, potassium 4.3, chloride 99, CO2 of 25, glucose 287, and creatinine 0.6. ASSESSMENT AND PLAN: So at this time, we will continue the same basal and bolus insulin regimen to allow for dose equilibration and keep her on the Novolog given as 24 units subcutaneous t.i.d. before meals as ordered. We will also continue the Lantus given as 50 units subcutaneous at bedtime daily as given. We will titrate incrementally as indicated to optimize metabolic control. We will obtain serial chemistries and supplement accordingly as needed. We will follow with you. Mariluz Medrano MD
== END 2017-07-15 19:02 | disposition home or self-care (01) | DRG 96 ==
LOC: C.ER 13:17 → INTOOBSV 14:45 → C.9E 14:45 → C.3T 21:07 → OBSVTOIN 07-14 16:57
PROVIDERS: ADMIT Internal Medicine Nephrology; ATTEND Internal Medicine Nephrology
DX: J45.901 Unspecified asthma with (acute) exacerbation (principal); E11.65 Type 2 diabetes mellitus with hyperglycemia; E88.81 Metabolic syndrome and other insulin resistance; J44.1 Chronic obstructive pulmonary disease with (acute) exacerbation; D64.9 Anemia, unspecified; E78.00 Pure hypercholesterolemia, unspecified; E78.5 Hyperlipidemia, unspecified; F32.9 Major depressive disorder, single episode, unspecified; I10 Essential (primary) hypertension; Z79.4 Long term (current) use of insulin; Z87.891 Personal history of nicotine dependence

== ENCOUNTER 2017-10-29 18:14 | Emergency (ER) | payer OTHER ==
[2017-10-29 18:20] VITALS: TEMP 97.5; O2SAT 97
[2017-10-29] MEDS ORDERED: MethylPREDNISolone 40 mg Vial IVP STA (18:26)
[2017-10-29] MEDS ORDERED: Albuterol-Ipratrop 3 mg / 0.5 (3 ml) UD INH STA ×3 (18:26→18:27)
[2017-10-29] MEDS ORDERED: Albuterol-Ipratrop 3 mg / 0.5 (3 ml) UD ONE ×2 (18:32→18:54)
--- NOTE | 2017-10-29 18:32 | C.PDOC ---
History Of Present Illness 52 y/o female, whose past medical history includes asthma and HTN, who presents to the ED complaining of asthma exacerbation since 5 days ago associated with dry cough. Patient denies fever, chest pain, headache, or other complaints. Time Seen by Provider: 10/29/17 18:22 Chief Complaint (Nursing): Shortness Of Breath History Per: Patient History/Exam Limitations: no limitations Onset/Duration Of Symptoms: Days Current Symptoms Are (Timing): Still Present Exacerbating Factor(s): Coughing Current Respiratory Medications: None Recent travel outside of the [place]: No Past Medical History Reviewed: Historical Data, Nursing Documentation, Vital Signs Vital Signs: Last Vital Signs Temp 97.5 F L 10/29/17 18:17 Pulse 104 H 10/29/17 19:23 Resp 24 10/29/17 19:23 BP 147/94 H 10/29/17 19:23 Pulse Ox 97 10/29/17 19:23 - Medical History PMH: Asthma, Depression, Diabetes, Fractures (right ankle), HTN, Hypercholesterolemia Denies: Chronic Kidney Disease - [facility] Procedures APPLICATION OF SPLINT (03/21/14) Family History: States: Unknown Family Hx - Social History Hx Tobacco Use: No Hx Alcohol Use: No Hx Substance Use: No - Immunization History Hx Tetanus Toxoid Vaccination: Yes Hx Influenza Vaccination: Yes Hx Pneumococcal Vaccination: Yes Review Of Systems Except As Marked, All Systems Reviewed And Found Negative. Constitutional: Negative for: Fever Cardiovascular: Negative for: Chest Pain Respiratory: Positive for: Cough, Shortness of Breath Gastrointestinal: Negative for: Abdominal Pain Physical Exam - Physical Exam Appears: Well, Non-toxic, No Acute Distress Skin: Normal Color, Warm, Dry Head: Atraumatic, Normacephalic Eye(s): bilateral: Normal Inspection, PERRL, EOMI Cardiovascular: Rhythm Regular Respiratory: No Rales, No Rhonchi, Wheezing (bilateral wheezing ) Gastrointestinal/Abdominal: Normal Exam, Bowel Sounds (active), Soft, No Distention, No Guarding, No Rebound Neurological/Psych: Oriented x3, Normal Speech, Normal Motor ED Course And Treatment - Laboratory Results Result Diagrams: 10/29/17 18:39 10/29/17 18:39 O2 Sat by Pulse Oximetry: 97 (room air) Pulse Ox Interpretation: Normal - Radiology CXR: Interpreted by Me CXR Interpretation: Yes: No Acute Disease Medical Decision Making Medical Decision Making: celina santamaria reassess Plans: -- Labs -- Albuterol -- CXR -- Urinalysis 730: pt reassessed wheezing nearly resolve.d speaking full sentences asking for dc. mild luekocytoisis- stable from previous- cxr neg as read by me. pt asking for dc refuses futher er obs. Disposition - Disposition Disposition: HOME/ ROUTINE Disposition Time: 19:25 Condition: STABLE Additional Instructions: please follow up with your doctor .return to er with worsenign symptoms or concerns. Prescriptions: Prednisone 50 mg PO DAILY #5 tab Instructions: Asthma in Adults Forms: [employer] (Thai) - Clinical Impression Clinical Impression: Asthma - Scribe Statement The provider has reviewed the documentation as recorded by the Scribe Scribe Attestation: Delma Camp MD Scribe Attestation: All medical record entries made by the Scribe were at my direction and personally dictated by me. I have reviewed the chart and agree that the record accurately reflects my personal performance of the history, physical exam, medical decision making, and the department course for this patient. I have also personally directed, reviewed, and agree with the discharge instructions and disposition.
[2017-10-29 18:45] LABS: BASO # 0.1 K/uL (0.0-0.2); BASO % 0.5 % (0.0-2.0); EOS # 0.6 K/uL (0.0-0.7); EOS % 4.2 % (0.0-4.0); LYMPH # 2.6 K/uL (1.0-4.3); LYMPH % 20.1 % (20.0-40.0); MEAN CELL VOLUME 75.1 fL (81.0-99.0); MEAN CORPUSCULAR HEMOGLOBIN 23.8 pg (27.0-31.0); MEAN CORPUSCULAR HGB CONC 31.6 g/dL (33.0-37.0); MEAN PLATELET VOLUME 9.1 fL (7.2-11.7); MONO # 0.8 K/uL (0.0-0.8); MONO % 5.8 % (0.0-10.0); NEUT # 9.1 K/uL (1.8-7.0); NEUT % 69.4 % (50.0-75.0); NRBC % 0.1 % (0.0-2.0); RBC 4.65 Mil/uL (3.80-5.20); RED CELL DISTRIBUTION WIDTH 16.5 % (11.5-14.5); WHITE BLOOD COUNT 13.1 K/uL (4.8-10.8)
[2017-10-29 18:55] LABS: INR 0.9
[2017-10-29 18:56] LABS: ALB/GLOB RATIO 1.1 (1.0-2.1); ALBUMIN 4.4 g/dL (3.5-5.0); ALT/SGPT 22 U/L (9-52); AST/SGOT 15 U/L (14-36); BLOOD UREA NITROGEN 12 mg/dL (7-17); CALCIUM 9.1 mg/dl (8.6-10.4); GFR AFRICAN-AMERICAN > 60; GFR NON-AFRICAN AMERICAN > 60
[2017-10-29 19:24] VITALS: BP 147/94; PULSE 104; RESP 24
--- NOTE | 2017-10-30 08:50 | RAD ---
HISTORY: SOB COMPARISON: 07/12/2017 TECHNIQUE: Chest PA and lateral FINDINGS: LUNGS: No active pulmonary disease. PLEURA: No significant pleural effusion identified. No pneumothorax apparent. CARDIOVASCULAR: Normal. OSSEOUS STRUCTURES: No significant abnormalities. VISUALIZED UPPER ABDOMEN: Normal. OTHER FINDINGS: None. IMPRESSION: No active disease.
== END 2017-10-29 19:50 | disposition home or self-care (01) ==
LOC: C.ER 18:14
DX: J45.909 Unspecified asthma, uncomplicated (principal)
CPT/HCPCS: 71046; 80053; 84703; 85025; 85610; 85730; 94150; 94640; 96374; 99285; J2920

== ENCOUNTER 2018-03-24 07:25 | Day surgery (SDC) | payer OTHER ==
[2018-03-23 14:34] VITALS: BMI 32.5
[2018-03-24 08:05] VITALS: O2SAT 100
--- NOTE | 2018-03-24 08:07 | CP.SDSHP ---
Same Day Surgery H & P - History Proposed Procedure: colonoscopy - Previous Medical/Surgical History Cardiac: Hypertension Pulmonary: Asthma Endocrine/Metabolic: Diabetes Previous Surgical History: Breast biopsy - Allergies Allergies: Allergies No Known Allergies Allergy (Verified 10/29/17 18:20) - Physical Exam Vital Signs: Vital Signs 03/24/18 07:48 Temperature 96.9 F L Pulse Rate 78 Respiratory 18 Rate Blood Pressure 147/96 H O2 Sat by Pulse 100 Oximetry - Date & Time Date: 03/24/18 Time: 08:07 Short Stay Discharge - Short Stay Discharge Admitting Diagnosis/Reason for Visit: ENCOUNTER FOR SCREENING FOR MALIGNANT NEOPLASM OF Disposition: HOME/ ROUTINE
[2018-03-24 10:15] VITALS: TEMP 97.7
[2018-03-24 10:26] VITALS: RESP 12
[2018-03-24] MEDS ORDERED: Propofol 10 mg/ml Inj (20 ML) ONE (10:37)
[2018-03-24 10:49] VITALS: BP 120/76; PULSE 59
== END 2018-03-24 10:46 | disposition home or self-care (01) ==
LOC: C.ENDO 07:25
PROVIDERS: ATTEND Colon & Rectal Surgery
DX: Z12.11 Encounter for screening for malignant neoplasm of colon (principal); K64.8 Other hemorrhoids
CPT/HCPCS: 45378; 82948; 84703; J2704

== ENCOUNTER 2018-07-16 16:20 | Emergency (ER) | payer OTHER ==
[2018-07-16 16:20] VITALS: BMI 32.5
--- NOTE | 2018-07-16 17:12 | C.PDOC ---
History Of Present Illness 53 year old female presents to the ED complaining of asthma exarcebation associated with wheezing and coughing for one week. Reports she usually takes her asthma medications daily but complains of persistent wheezing despite medication use. Denies history of smoking, fever, chills, chest pain, nausea, vomiting. States "it is not the worst I've ever have". Time Seen by Provider: 07/16/18 16:47 Chief Complaint (Nursing): Cough, Cold, Congestion History Per: Patient History/Exam Limitations: no limitations Onset/Duration Of Symptoms: Days Current Symptoms Are (Timing): Still Present Associated Symptoms: Cough, Other (wheezing). denies: Fever - Asthma History Medication Use: Daily Past Medical History Reviewed: Historical Data, Nursing Documentation, Vital Signs Vital Signs: Last Vital Signs Temp 98.7 F 07/16/18 16:24 Pulse 125 H 07/16/18 16:24 Resp 22 07/16/18 16:24 BP 123/71 07/16/18 16:24 Pulse Ox 96 07/16/18 16:24 - Medical History PMH: Asthma, Depression, Diabetes, Fractures (right ankle), Gastritis, HTN, Hypercholesterolemia Denies: Chronic Kidney Disease Surgical History: Endoscopy - [facility] Procedures APPLICATION OF SPLINT (03/21/14) Family History: States: No Known Family Hx - Social History Hx Tobacco Use: No Hx Alcohol Use: No Hx Substance Use: No - Immunization History Hx Tetanus Toxoid Vaccination: Yes Hx Influenza Vaccination: Yes Hx Pneumococcal Vaccination: Yes Review Of Systems Except As Marked, All Systems Reviewed And Found Negative. Constitutional: Negative for: Fever, Chills Respiratory: Positive for: Cough, Wheezing Gastrointestinal: Negative for: Nausea, Vomiting, Diarrhea Physical Exam - Physical Exam Appears: Non-toxic, No Acute Distress Skin: Warm, Dry, No Rash Head: Normacephalic Eye(s): bilateral: Normal Inspection Nose: Normal Oral Mucosa: Moist Neck: Normal ROM, Supple Chest: Symmetrical Cardiovascular: Rhythm Regular Respiratory: No Rales, No Rhonchi, No Stridor, Wheezing (Expiratory wheezing), Other (Bronchial congestion, some retractions. Speaking full sentences ) Gastrointestinal/Abdominal: Soft, No Tenderness Neurological/Psych: Oriented x3, Normal Speech Gait: Steady ED Course And Treatment O2 Sat by Pulse Oximetry: 96 (RA) Pulse Ox Interpretation: Normal - Radiology CXR: Interpreted by Fl CXR Interpretation: Yes: No Acute Disease Reevaluation Time: 18:06 Reassessment Condition: Improved (CTA B/L OCC BRONCHIAL AYDEN WHEEZING RESOLVED. FEELS BETTER VSS) Medical Decision Making Medical Decision Making: Plan - CXR - Nebulizer treatment - Prednisone 60mg PO Disposition Counseled Patient/Family Regarding: Studies Performed, Diagnosis, Need For Followup, Rx Given - Disposition Referrals: YOUR,PMD [Other] Disposition: HOME/ ROUTINE Disposition Time: 18:07 Condition: IMPROVED Prescriptions: Albuterol 0.083% [Albuterol Sulfate 3 Ml] 3 ml IH Q4 #30 neb Albuterol HFA [Ventolin HFA 90 mcg/actuation (8 g)] 1 puff IH Q4 #1 inhaler Azithromycin 250 mg PO DAILY #6 tab predniSONE [Prednisone] 60 mg PO DAILY #12 tab Instructions: Asthma, Adult (DC) Forms: [employer] (Bulgarian) - Clinical Impression Clinical Impression: Exacerbation of asthma, Bronchitis - Scribe Statement The provider has reviewed the documentation as recorded by the Preetibsagar Cota All medical record entries made by the Preetibsagar were at my direction and personally dictated by me. I have reviewed the chart and agree that the record accurately reflects my personal performance of the history, physical exam, medical decision making, and the department course for this patient. I have also personally directed, reviewed, and agree with the discharge instructions and disposition.
[2018-07-16] MEDS ORDERED: Albuterol-Ipratrop 3 mg / 0.5 (3 ml) UD ONE (17:18)
--- NOTE | 2018-07-16 18:03 | RAD ---
Chest x-ray two views HISTORY: Asthma. COMPARISON: 10/29/2017 Findings: Mild venous congestion. Mild linear atelectasis in the left mid lung zone. Bibasilar breast and nipple shadows. Tortuous aorta. Heart size within normal limits Biapical pleural thickening. Degenerative changes spine. Impression: Mild venous congestion. Mild linear atelectasis in the left mid lung zone. Bibasilar breast and nipple shadows. Tortuous aorta. Heart size within normal limits Biapical pleural thickening. Degenerative changes spine.
[2018-07-16] MEDS: Albuterol-Ipratrop 3 mg / 0.5 (3 ml) UD IH SCH (18:13)
[2018-07-16 18:27] VITALS: BP 117/80; PULSE 106; RESP 18; TEMP 98.2; O2SAT 100
== END 2018-07-16 18:27 | disposition home or self-care (01) ==
LOC: C.ER 16:20
DX: J45.901 Unspecified asthma with (acute) exacerbation (principal); I10 Essential (primary) hypertension

== ENCOUNTER 2018-08-29 08:10 | Outpatient (CLI) | payer OTHER | END 2018-08-29 08:11 | disposition home or self-care (01) | LOC: C.SPRAD 08:10 ==

== ENCOUNTER 2018-09-08 14:11 | Outpatient (CLI) | payer OTHER | END 2018-09-08 14:12 | disposition home or self-care (01) | LOC: C.PAT 14:11 | DX: C50.119 Malignant neoplasm of central portion of unspecified female breast (principal) ==

== ENCOUNTER 2018-09-15 08:41 | Outpatient (CLI) | payer OTHER | END 2018-09-15 08:42 | disposition home or self-care (01) | LOC: C.CARD 08:41 | DX: R07.9 Chest pain, unspecified (principal); E11.9 Type 2 diabetes mellitus without complications ==

== ENCOUNTER 2018-09-20 10:14 | Inpatient (IN) | payer MEDICARE, OTHER ==
[2018-09-20] MEDS ORDERED: Midazolam 2 MG/2 ML VIAL ONE (12:45)
[2018-09-20] MEDS ORDERED: Propofol 10 mg/ml Inj (20 ML) ONE (12:45)
[2018-09-20] MEDS ORDERED: ceFAZolin 1 gm in NS 2 GM/200 ML BAG IVPB ONE (12:51)
[2018-09-20] MEDS ORDERED: Albuterol HFA 90 mcg/actuation (8 g) ONE (12:53)
[2018-09-20] MEDS ORDERED: Succinylcholine Chloride 20 mg/ml Syr (5 ml) IV ONE (12:53)
[2018-09-20] MEDS ORDERED: Rocuronium 10 mg/ml (5 ml) ONE (13:07)
[2018-09-20] MEDS ORDERED: Neostigmine 1:1000 (1 mg/ml) Inj ONE (13:44)
[2018-09-20] MEDS: HYDROmorphone 0.5 mg/0.5 ml ISec IVP PRN ×2 (14:21→15:00)
[2018-09-20] MEDS ORDERED: HYDROmorphone 0.5 mg/0.5 ml ISec ONE (15:04)
--- NOTE | 2018-09-20 15:06 | CP.PCM.PN ---
Subjective - Date & Time of Evaluation Date of Evaluation: 09/20/18 Time of Evaluation: 14:57 - Subjective Subjective: Called by PACU, pt has loose right bottom molar. Pt did not report any loose teeth prior to case. Direct laryngoscopy was uneventful, one attempt, easy view despite smaller chin and slight overbite. Also laryngoscopy always done with scope on left, pulling leftward. Unlikely due to laryngoscopy. Examined tooth -- tooth is rotted and already fractured and missing back half. Upon further questioning, pt states that tooth was fractured and half missing for a while now. She states her dentist told her it had to be removed but that she did not get around to scheduling an appointment yet. Most likely possibility: during emergence, pt involuntarily bit down and loosened already rotting tooth. Advised to contact dentist immediately upon discharge. In meantime, soft diet ordered and advised not to chew anything. Objective - Vital Signs/Intake and Output Vital Signs (last 24 hours): Temp Pulse Resp BP Pulse Ox 97.7 F 70 20 116/68 98 09/20/18 10:20 09/20/18 10:20 09/20/18 10:20 09/20/18 10:20 09/20/18 10:20 Intake and Output: 09/20/18 09/20/18 06:59 18:59 Intake Total 1000 Balance 1000 - Medications Medications: Current Medications Docusate Sodium (Colace) 100 mg PO BID EH Enoxaparin Sodium (Lovenox) 30 mg SC 1000,2200 EH Hydromorphone HCl (Dilaudid) 0.5 mg IVP Q5M PRN PRN Reason: Pain, severe (8-10) Stop: 09/20/18 16:15 Sodium Chloride (Sodium Chloride 0.45%) 1,000 mls @ 60 mls/hr IV .[id number] EH Cefazolin Sodium 1,000 mg/ (Sodium Chloride) 50 mls @ 100 mls/hr IVPB Q8H EH; Protocol Ketorolac Tromethamine (Toradol) 30 mg IVP Q6 PRN PRN Reason: pain 8-10 Stop: 09/25/18 14:08 Ondansetron HCl (Zofran Inj) 4 mg IVP ONCE PRN PRN Reason: Nausea/Vomiting Stop: 09/20/18 16:15 Oxycodone/Acetaminophen (Percocet 5/325 Mg Tab) 2 tab PO Q4H PRN PRN Reason: pain Stop: 09/23/18 14:08 Pantoprazole Sodium (Protonix Inj) 40 mg IVP DAILY EH
--- NOTE | 2018-09-20 16:42 | CP.PCM.PN ---
<Chano Espinosa - Last Filed: 09/20/18 18:24> Subjective - Date & Time of Evaluation Date of Evaluation: 09/20/18 Time of Evaluation: 16:33 - Subjective Subjective: PGY2 Medicine Consult Note for Dr. Harpreet Delcid Reason for Consult: Medical Management Patient is a 53 year old female with a past medical history of asthma, depression, insulin dependent diabetes, hypertension, hypercholesterolemia, PVD, right sided breast cyst and left sided breast CA (HER2 positive) is being admitted to the hospital after Left Modified Radical Mastectomy by Dr. Sanz. Patient is accompanied by her two daughters at bedside that provide most of her history. Patient recently had a mammogram and biopsy and was informed that she has breast cancer. Patient has not started chemotherapy or radiation at this time. Patient is complaining of a cracked tooth in the back of her mouth on the right side. Patient was seen in the PACU. Denies any other complaints at this time. PMD: Dr. Hossein Lopez PMH: past medical history of asthma, depression, insulin dependent diabetes, hypertension, hypercholesterolemia, PVD, right sided breast cyst and left sided breast CA (HER2 positive) PSH: Breast biopsy, Left Modified Radical Mastectomy Social: former smoker (smoked 1 pack every 3 day for 25 years, quit 10 years ago), denies alcohol and illicit drug use Allergies: NKDA Objective - Vital Signs/Intake and Output Vital Signs (last 24 hours): Temp Pulse Resp BP Pulse Ox 97.7 F 70 20 116/68 98 09/20/18 10:20 09/20/18 10:20 09/20/18 10:20 09/20/18 10:20 09/20/18 10:20 Intake and Output: 09/20/18 09/20/18 06:59 18:59 Intake Total 1100 Balance 1100 - Medications Medications: Current Medications Docusate Sodium (Colace) 100 mg PO BID EH Enoxaparin Sodium (Lovenox) 30 mg SC 1000,2200 EH Sodium Chloride (Sodium Chloride 0.45%) 1,000 mls @ 60 mls/hr IV .[id number] EH Cefazolin Sodium 1,000 mg/ (Sodium Chloride) 100 mls @ 100 mls/hr IVPB Q8H EH; Protocol Ketorolac Tromethamine (Toradol) 30 mg IVP Q6 PRN PRN Reason: pain 8-10 Stop: 09/25/18 14:08 Oxycodone/Acetaminophen (Percocet 5/325 Mg Tab) 2 tab PO Q4H PRN PRN Reason: pain Stop: 09/23/18 14:08 Pantoprazole Sodium (Protonix Inj) 40 mg IVP DAILY EH - Constitutional Appears: Non-toxic, No Acute Distress - Head Exam Head Exam: ATRAUMATIC, NORMOCEPHALIC - Eye Exam Eye Exam: Normal appearance - ENT Exam ENT Exam: Mucous Membranes Moist Additional comments: rotted, cracked and loose posterior molar on bottom of mouth. - Neck Exam Neck Exam: absent: Lymphadenopathy, Tenderness - Respiratory Exam Respiratory Exam: Clear to Ausculation Bilateral, NORMAL BREATHING PATTERN. absent: Accessory Muscle Use, Rhonchi, Wheezes, Respiratory Distress Additional comments: binder on chest. Drain in place on left side of chest, draining blood. - Cardiovascular Exam Cardiovascular Exam: REGULAR RHYTHM, +S1, +S2 - GI/Abdominal Exam GI & Abdominal Exam: Soft, Normal Bowel Sounds. absent: Distended, Firm, Guarding, Rigid, Tenderness - Extremities Exam Extremities Exam: absent: Calf Tenderness, Pedal Edema - Neurological Exam Neurological Exam: Alert, Awake, Oriented x3 - Psychiatric Exam Psychiatric exam: Normal Affect, Normal Mood - Skin Skin Exam: Dry, Warm Assessment and Plan - Assessment and Plan (Free Text) Plan: Breast Cancer (HER2 Positive) s/p Left Modified Radical Mastectomy, POD #0 General Surgery (primary team), Dr. Sanz * management per primary team Hem/Onc consult, Dr. Lopez * Patient follows up for with a physician in Dr. Lopez's office as a primary. * Dr. Lopez placed on consult to make sure patient has appropriate follow up care of her disease. Hx of Insulin Dependent Diabetes Type 2 accuchecks ACHS hypoglycemic protocol Medications: * Lantus 30 units SC HS * Glipizide 10 mg PO daily * ISS ACHS - medium Hx of Hypertension continue to monitor Medications: * Losartan 50 mg PO daily Hx of Hyperlipidemia Medications: * Crestor 10 mg PO HS Hx of PAD home Aspirin on hold - restart per primary Hx of Asthma Recommend outpatient PTFs * patient reports using albuterol nebulizer every morning and albuterol inhaler once or twice every day. Patient reports previous adverse effects with use of Advair Diskus. Medications: * Duoneb q6h prn * Albuterol 1 puff q4h prn * Montelukast 10mg PO daily Dental Issue After discussion with patient, patient's tooth became loose upon waking up from surgery. Per anesthesia note, * Patient states that tooth was fractured and half missing for a while now. She states her dentist told her it had to be removed but that she did not get around to scheduling an appointment yet. Most likely possibility: during emergence, pt involuntarily bit down and loosened already rotting tooth. Advised to contact dentist immediately upon discharge. In meantime, soft diet ordered and advised not to chew anything. Patient is to follow up with Dentist immediately upon discharge to have tooth removed. Case discussed with Dr. Harpreet Espinosa PGY2 <Harpreet Delcid - Last Filed: 09/20/18 20:46> Objective - Vital Signs/Intake and Output Vital Signs (last 24 hours): Temp Pulse Resp BP Pulse Ox 97.9 F 98 H 20 124/68 93 L 09/20/18 18:10 09/20/18 18:10 09/20/18 18:10 09/20/18 18:10 09/20/18 18:10 Intake and Output: 09/20/18 09/21/18 18:59 06:59 Intake Total 1100 Balance 1100 - Medications Medications: Current Medications Albuterol (Ventolin Hfa 90 Mcg/Actuation (8 G)) 1 puff IH RQ4 PRN PRN Reason: Shortness of Breath Albuterol/Ipratropium (Duoneb 3 Mg/0.5 Mg (3 Ml) Ud) 3 ml INH RQ6 PRN PRN Reason: Wheezing/SOB Dextrose (Dextrose 50% Inj) 0 ml IV STAT PRN; Protocol PRN Reason: Hypoglycemia Protocol Dextrose (Glutose 15) 0 gm PO ONCE PRN; Protocol PRN Reason: Hypoglycemia Protocol Docusate Sodium (Colace) 100 mg PO BID [facility] Last Admin: 09/20/18 18:30 Dose: 100 mg Enoxaparin Sodium (Lovenox) 30 mg SC 1000,2200 EH Glipizide (Glucotrol) 10 mg PO DAILY EH Glucagon (Glucagen Diagnostic Kit) 0 mg IM STAT PRN; Protocol PRN Reason: Hypoglycemia Protocol Sodium Chloride (Sodium Chloride 0.45%) 1,000 mls @ 60 mls/hr IV .[id number] EH Cefazolin Sodium 1,000 mg/ (Sodium Chloride) 100 mls @ 100 mls/hr IVPB Q8H EH; Protocol Dextrose (Dextrose 5% In Water 1000 Ml) 1,000 mls @ 0 mls/hr IV .Q0M PRN; Protocol PRN Reason: Hypoglycemia Protocol Insulin Glargine (Lantus) 30 unit SC HS EH Insulin Human Regular (Novolin R) 0 unit SC ACHS EH; Protocol Ketorolac Tromethamine (Toradol) 30 mg IVP Q6 PRN PRN Reason: pain 8-10 Stop: 09/25/18 14:08 Losartan Potassium (Cozaar) 50 mg PO DAILY EH Montelukast Sodium (Singulair) 10 mg PO DAILY EH Oxycodone/Acetaminophen (Percocet 5/325 Mg Tab) 2 tab PO Q4H PRN PRN Reason: pain Stop: 09/23/18 14:08 Last Admin: 09/20/18 18:31 Dose: 2 tab Pantoprazole Sodium (Protonix Inj) 40 mg IVP DAILY EH Rosuvastatin Calcium (Crestor) 10 mg PO HS [facility] Attending/Attestation - Attestation I have personally seen and examined this patient.: Yes I have fully participated in the care of the patient.: Yes I have reviewed all pertinent clinical information, including history, physical exam and plan: Yes Notes (Text): 09/20/18 20:40 History and Physical, Assessment and Plan, and all Orders were gone over in detail with resident Dr. Lopez. Spoke with Daughter Antonietta [phone] who was at the bedside on [phone] and explained that Medicine Team has ordered consult for Dr. Artur Lopez as patient stated that she had NO oncologist. Medicine Team will monitor patient's chronic issues for the next 24 hours and if stable we will then sign off. Harpreet Delcid D.O.
[2018-09-20] MEDS ORDERED: INSULIN GLARGINE HUM REC ANLOG 30 UNIT SQ PRN (16:50)
[2018-09-20] MEDS ORDERED: Albuterol HFA 90 mcg/actuation (8 g) IH PRN ×2 (16:50→17:00)
[2018-09-20] MEDS ORDERED: Glucagon Recombinant 1 mg Inj IM PRN (16:54)
[2018-09-20] MEDS ORDERED: Dextrose 50% SYRINGE Inj (50 ml) IV PRN (16:54)
[2018-09-20] MEDS: Oxycodone/Acetaminophen 5/325 mg Tab PO PRN (18:31)
[2018-09-20 21:46] LABS: BASO % 0.3 % (0.0-2.0); EOS # 0.1 K/uL (0.0-0.7); EOS % 0.4 % (0.0-4.0); HEMOGLOBIN 10.9 g/dL (11.0-16.0); LYMPH % 7.4 % (20.0-40.0); MEAN CELL VOLUME 83.2 fL (81.0-99.0); MEAN CORPUSCULAR HEMOGLOBIN 26.1 pg (27.0-31.0); MEAN CORPUSCULAR HGB CONC 31.3 g/dL (33.0-37.0); MEAN PLATELET VOLUME 9.2 fL (7.2-11.7); MONO # 0.5 K/uL (0.0-0.8); MONO % 3.9 % (0.0-10.0); NEUT # 11.6 K/uL (1.8-7.0); PLATELET COUNT 248 K/uL (130-400); RBC 4.19 Mil/uL (3.80-5.20); WHITE BLOOD COUNT 13.2 K/uL (4.8-10.8)
--- NOTE | 2018-09-20 21:51 | OP ---
PROCEDURE DATE: 09/20/2018 PREOPERATIVE DIAGNOSIS: Adenocarcinoma the left breast with nodular metastasis. POSTOPERATIVE DIAGNOSIS: Adenocarcinoma the left breast with nodular metastasis. PROCEDURE PERFORMED: Left modified radical mastectomy with extended inferior dissection. SURGEON: Chino Sanz MD [id number] APPLICATION DEVELOPER: Skip Thomas MD ANESTHESIA: General endotracheal. ESTIMATED BLOOD LOSS: 100 mL. POSTOPERATIVE CONDITION: Stable. INDICATION FOR SURGERY: This is a 53-year-old female with a mass of the lower outer quadrant of her left breast. Preoperative ultrasound revealed a suspected malignancy along with enlarged lymph nodes. She underwent an ultrasound-guided needle biopsy of both the of the breast mass and one of the lymph nodes. Both came back positive for adenocarcinoma. Treatment options were discussed with the patient including preoperative neoadjuvant chemotherapy, breast conserving therapy, and modified radical mastectomy. The patient elected to undergo modified radical mastectomy for which she is admitted today. GROSS FINDINGS: There was a 3 to 4-cm mass inferiorly along the lower crease of the left breast. This required the mastectomy incision to extend onto the chest wall. This in turn required a large advancement flap closure in order to close the wound. There were several lymph nodes dissected which were enlarged and appeared to be abnormal. DESCRIPTION OF THE PROCEDURE: The patient was taken to the operating room and placed in the supine position. General anesthesia was administered. The left breast and upper extremity were prepped and draped. An elliptical mastectomy incision was made, but it was carried lower onto the chest wall to surround the malignant lesion on the lower crease of the left breast. The superior and inferior flaps were then dissected down to the pectoralis muscle fascia. Once this had been done, the breast was taken off the pectoralis muscle including the fascia into the axilla. This was accomplished in the lower chest wall. Bleeding in the chest wall was noted, and a bleeding thoracic blood vessel was dissected free and isolated and repaired with a 6-0 Prolene. Blood flow was confirmed by Doppler. Next, dissection in the axilla took place all the tissue inferior to the axillary vein medial to the latissimus dorsi muscle and lateral to the serratus anterior muscle was dissected free and removed. One thoracic nerve and thoracodorsal nerve were identified and preserved. The wound was irrigated with copious amounts of saline solution. An advancement flap closure was performed by widely undermining full-thickness flaps especially inferiorly. Counter incisions were made in the fascia, and a 52 sq cm advancement flap closure was performed with multiple layers of Monocryl, subcuticular Monocryl and skin clips. A Venu drain was left in the axilla add on to the chest wall prior to closure. The patient tolerated the procedure well and returned to recovery room in stable condition. Chino Sanz MD
[2018-09-20] MEDS: (Novolin R) Insulin Human Regular 100 units/ml vial SC SCH (22:06)
[2018-09-20 22:08] LABS: ALB/GLOB RATIO 1.3 (1.0-2.1); ALBUMIN 3.6 g/dL (3.5-5.0); ALT/SGPT 13 U/L (9-52); AST/SGOT 16 U/L (14-36); BLOOD UREA NITROGEN 12 mg/dL (7-17); CALCIUM 8.6 mg/dl (8.6-10.4); GFR NON-AFRICAN AMERICAN > 60
[2018-09-20] MEDS: Sodium Chloride 0.45% 1,000 ML IV SCH (22:40)
[2018-09-20] MEDS: Enoxaparin 30 mg Syringe SC SCH (22:42)
[2018-09-20] MEDS: (Lantus) Insulin Glargine, Recombinant SC SCH (22:42)
--- NOTE | 2018-09-20 23:00 | CP.PCM.CON ---
History of Present Illness - History of Present Illness History of Present Illness: 53 year old female with a history of HTN, DM, HL, newly diagnosed left breast cancer (ER/UT neg, HER2 pos) s/p left mastetomy with axillary lymph node dissection. The patient was offered neoadjuvant chemotherapy but elected to have surgery first. She is agreeable to outpatient adjuvant chemotherapy. She notes to mild post op pain which is controlled with pain meds. Past medical history: HTN, DM, HL Past surgical history: left mastectomy with axillary LN dissection Family history: Denies hematologic and oncologic problems Social history: Denies tobacco, alcohol, and illicit drug use. Allergies: NKA Review of systems: All remaining review of systems including HEENT, cardiovascular, respiratory, gastrointestinal, genitourinary, musculoskeletal, dermatologic, neurologic, and psychiatric are negative unless mentioned in the HPI. Past Patient History - Past Medical History & Family History Past Medical History?: Yes - Past Social History Smoking Status: Former Smoker - CARDIAC Hx Cardiac Disorders: Yes Hx Hypercholesterolemia: Yes Hx Hypertension: Yes - PULMONARY Hx Respiratory Disorders: Yes Hx Asthma: Yes - NEUROLOGICAL Hx Neurological Disorder: No - HEENT Hx HEENT Problems: No - RENAL Hx Chronic Kidney Disease: No - ENDOCRINE/METABOLIC Hx Endocrine Disorders: Yes Hx Diabetes Mellitus Type 2: Yes - HEMATOLOGICAL/ONCOLOGICAL Hx Blood Disorders: No - INTEGUMENTARY Hx Dermatological Problems: No - MUSCULOSKELETAL/RHEUMATOLOGICAL Hx Musculoskeletal Disorders: Yes Hx Falls: No Hx Fractures: Yes (right ankle) - GASTROINTESTINAL Hx Gastrointestinal Disorders: Yes Hx Gastritis: Yes - GENITOURINARY/GYNECOLOGICAL Hx Genitourinary Disorders: No - PSYCHIATRIC Hx Psychophysiologic Disorder: Yes Hx Depression: Yes Hx Substance Use: No - SURGICAL HISTORY Hx Surgeries: Yes (RIGHT BREAST SURGERY) Hx Tubal Ligation: Yes Other/Comment: right breast biopsy - ANESTHESIA Hx Anesthesia: Yes Hx Anesthesia Reactions: No Hx Malignant Hyperthermia: No Meds Allergies/Adverse Reactions: Allergies Allergy/AdvReac Type Severity Reaction Status Date / Time No Known Allergies Allergy Verified 09/08/18 14:29 - Medications Medications: Current Medications Albuterol (Ventolin Hfa 90 Mcg/Actuation (8 G)) 1 puff IH RQ4 PRN PRN Reason: Shortness of Breath Albuterol/Ipratropium (Duoneb 3 Mg/0.5 Mg (3 Ml) Ud) 3 ml INH RQ6 PRN PRN Reason: Wheezing/SOB Dextrose (Dextrose 50% Inj) 0 ml IV STAT PRN; Protocol PRN Reason: Hypoglycemia Protocol Dextrose (Glutose 15) 0 gm PO ONCE PRN; Protocol PRN Reason: Hypoglycemia Protocol Docusate Sodium (Colace) 100 mg PO BID [facility] Last Admin: 09/20/18 18:30 Dose: 100 mg Enoxaparin Sodium (Lovenox) 30 mg SC 1000,2200 [facility] Last Admin: 09/20/18 22:42 Dose: 30 mg Glipizide (Glucotrol) 10 mg PO DAILY [facility] Glucagon (Glucagen Diagnostic Kit) 0 mg IM STAT PRN; Protocol PRN Reason: Hypoglycemia Protocol Sodium Chloride (Sodium Chloride 0.45%) 1,000 mls @ 60 mls/hr IV .[id number] [facility] Last Admin: 09/20/18 22:40 Dose: 60 mls/hr Cefazolin Sodium 1,000 mg/ (Sodium Chloride) 100 mls @ 100 mls/hr IVPB Q8H [facility]; Protocol Last Admin: 09/20/18 22:41 Dose: 100 mls/hr Dextrose (Dextrose 5% In Water 1000 Ml) 1,000 mls @ 0 mls/hr IV .Q0M PRN; Protocol PRN Reason: Hypoglycemia Protocol Insulin Glargine (Lantus) 30 unit SC [facility] Last Admin: 09/20/18 22:42 Dose: 30 units Insulin Human Regular (Novolin R) 0 unit SC ACHS [facility]; Protocol Last Admin: 09/20/18 22:06 Dose: Not Given Ketorolac Tromethamine (Toradol) 30 mg IVP Q6 PRN PRN Reason: pain 8-10 Stop: 09/25/18 14:08 Losartan Potassium (Cozaar) 50 mg PO DAILY [facility] Montelukast Sodium (Singulair) 10 mg PO DAILY [facility] Oxycodone/Acetaminophen (Percocet 5/325 Mg Tab) 2 tab PO Q4H PRN PRN Reason: pain Stop: 09/23/18 14:08 Last Admin: 09/20/18 18:31 Dose: 2 tab Pantoprazole Sodium (Protonix Inj) 40 mg IVP DAILY [facility] Rosuvastatin Calcium (Crestor) 10 mg PO HS [facility] Last Admin: 09/20/18 22:42 Dose: 10 mg Physical Exam - Head Exam Head Exam: ATRAUMATIC - Eye Exam Eye Exam: Normal appearance - ENT Exam ENT Exam: Mucous Membranes Dry - Respiratory Exam Respiratory Exam: NORMAL BREATHING PATTERN - Cardiovascular Exam Cardiovascular Exam: +S1, +S2 - GI/Abdominal Exam GI & Abdominal Exam: Normal Bowel Sounds - Neurological Exam Neurological exam: Oriented x3 - Psychiatric Exam Psychiatric exam: Normal Affect, Normal Mood - Skin Skin Exam: Warm Results - Vital Signs Recent Vital Signs: Last Vital Signs Temp 97.9 F 09/20/18 18:10 Pulse 98 H 09/20/18 18:10 Resp 20 09/20/18 18:10 BP 124/68 09/20/18 18:10 Pulse Ox 93 L 09/20/18 18:10 - Labs Result Diagrams: 09/20/18 21:40 09/20/18 21:40 Labs: Laboratory Results - last 24 hr 09/20/18 09/20/18 09/20/18 10:44 21:40 21:40 WBC 13.2 H RBC 4.19 Hgb 10.9 L Hct 34.9 MCV 83.2 MCH 26.1 L MCHC 31.3 L RDW 16.0 H Plt Count 248 MPV 9.2 Neut % (Auto) 88.0 H Lymph % (Auto) 7.4 L Tripp % (Auto) 3.9 Eos % (Auto) 0.4 Baso % (Auto) 0.3 Neut # (Auto) 11.6 H Lymph # (Auto) 1.0 Tripp # (Auto) 0.5 Eos # (Auto) 0.1 Baso # (Auto) 0.0 Sodium 133 Potassium 4.0 Chloride 99 Carbon Dioxide 27 Anion Gap 11 BUN 12 Creatinine 0.5 L Est GFR ( Amer) > 60 Est GFR (Non-Af Amer) > 60 POC Glucose (mg/dL) 114 H Random Glucose 280 H Calcium 8.6 Magnesium 1.4 L Total Bilirubin 0.4 AST 16 ALT 13 Alkaline Phosphatase 78 Total Protein 6.3 Albumin 3.6 Globulin 2.7 Albumin/Globulin Ratio 1.3 Assessment & Plan (1) Breast cancer Assessment and Plan: ER/UT -, HER + s/p modified mastectomy with axillary LN dissection portacath placement for adjuvant chemotherapy + HER2 blockade Status: Acute (2) Anemia Assessment and Plan: mild surgical blood loss Thank you for this interesting consult. Status: Acute
[2018-09-20 23:20] LABS: LYMPHOCYTE 8 % (20-40); MONOCYTE 4 % (0-10); NEUTROPHIL 88 % (50-75); PLATELET ESTIMATE NORMAL (NORMAL); TOTAL CELLS COUNTED 100
[2018-09-21] MEDS ORDERED: Magnesium Sulfate 1 gm in D5W 1 GM/100 ML BAG IVPB ONE (02:50)
[2018-09-21 07:04] LABS: BASO % 0.5 % (0.0-2.0); EOS # 0.4 K/uL (0.0-0.7); EOS % 3.7 % (0.0-4.0); LYMPH # 2.3 K/uL (1.0-4.3); LYMPH % 24.1 % (20.0-40.0); MEAN CELL VOLUME 83.5 fL (81.0-99.0); MEAN CORPUSCULAR HEMOGLOBIN 27.1 pg (27.0-31.0); MEAN CORPUSCULAR HGB CONC 32.4 g/dL (33.0-37.0); MEAN PLATELET VOLUME 9.4 fL (7.2-11.7); MONO # 0.7 K/uL (0.0-0.8); MONO % 7.5 % (0.0-10.0); NEUT # 6.2 K/uL (1.8-7.0); NEUT % 64.2 % (50.0-75.0); RBC 4.06 Mil/uL (3.80-5.20); RED CELL DISTRIBUTION WIDTH 15.6 % (11.5-14.5); WHITE BLOOD COUNT 9.6 K/uL (4.8-10.8)
[2018-09-21 07:31] LABS: ALB/GLOB RATIO 1.2 (1.0-2.1); ALBUMIN 3.4 g/dL (3.5-5.0); ALT/SGPT 16 U/L (9-52); AST/SGOT 16 U/L (14-36); BLOOD UREA NITROGEN 9 mg/dL (7-17); GFR NON-AFRICAN AMERICAN > 60
[2018-09-21] MEDS: (Novolin R) Insulin Human Regular 100 units/ml vial SC SCH ×4 (08:25→21:29)
[2018-09-21] MEDS ORDERED: Albuterol-Ipratrop 3 mg / 0.5 (3 ml) UD INH ONE (08:30)
[2018-09-21] MEDS: Enoxaparin 30 mg Syringe SC SCH ×2 (11:47→21:30)
[2018-09-21] MEDS: Oxycodone/Acetaminophen 5/325 mg Tab PO PRN (13:22)
[2018-09-21 18:07] LABS: T4 12.4 ug/dL (5.5-11.0)
--- NOTE | 2018-09-21 18:36 | US ---
Date of service: 09/21/2018 HISTORY: Enlarged Thyroid TECHNIQUE: Sonographic evaluation of the thyroid gland. COMPARISON: None. FINDINGS: RIGHT LOBE: Measures 0.3 x 2.4 x 6.2 cm. Heterogeneous enlarged right lobe Nodules: Cystic nodule midpole region 4 x 6 x 6 mm. Cystic nodule midpole region laterally 4 x 3 x 4 mm. Cystic nodule lower pole medially 3 x 3 mm. LEFT LOBE: Measures 2.3 x 2 x 5.6 cm. Heterogeneous, enlarged left lobe. Nodules: Cystic nodule midpole region 3 x 4 x 4 mm. Cystic nodule upper pole 3 x 4 x 3 mm. Solid nodule midpole 4 x 5 x 4 mm. ISTHMUS: Measures 4.7 mm. Normal echotexture and flow. Nodules: None OTHER FINDINGS: None . IMPRESSION: Enlarged, heterogeneous gland bilaterally. Bilateral, multiple (6) sub cm thyroid nodules. No further evaluation indicated at this time.
--- NOTE | 2018-09-21 19:13 | CP.PCM.PN ---
<Kortney Walton - Last Filed: 09/21/18 19:10> Subjective - Date & Time of Evaluation Date of Evaluation: 09/21/18 Time of Evaluation: 19:10 - Subjective Subjective: PGY-1 Medicine Progress Note for Dr. Delcid's service S/E at bedside. Offers no acute complaints. Denies fevers, chills, chest pain, sob, n/v, constipation or diarrhea, dysuria. Objective - Vital Signs/Intake and Output Vital Signs (last 24 hours): Temp Pulse Resp BP Pulse Ox 98.6 F 90 20 100/61 96 09/21/18 15:10 09/21/18 15:10 09/21/18 15:10 09/21/18 15:10 09/21/18 15:10 - Medications Medications: Current Medications Albuterol (Ventolin Hfa 90 Mcg/Actuation (8 G)) 1 puff IH RQ4 PRN PRN Reason: Shortness of Breath Albuterol/Ipratropium (Duoneb 3 Mg/0.5 Mg (3 Ml) Ud) 3 ml INH RQ6 PRN PRN Reason: Wheezing/SOB Dextrose (Dextrose 50% Inj) 0 ml IV STAT PRN; Protocol PRN Reason: Hypoglycemia Protocol Dextrose (Glutose 15) 0 gm PO ONCE PRN; Protocol PRN Reason: Hypoglycemia Protocol Docusate Sodium (Colace) 100 mg PO BID [facility] Last Admin: 09/21/18 17:14 Dose: 100 mg Enoxaparin Sodium (Lovenox) 30 mg SC 1000,2200 [facility] Last Admin: 09/21/18 11:47 Dose: Not Given Glipizide (Glucotrol) 10 mg PO DAILY [facility] Last Admin: 09/21/18 10:40 Dose: 10 mg Glucagon (Glucagen Diagnostic Kit) 0 mg IM STAT PRN; Protocol PRN Reason: Hypoglycemia Protocol Sodium Chloride (Sodium Chloride 0.45%) 1,000 mls @ 60 mls/hr IV .[id number] [facility] Last Admin: 09/20/18 22:40 Dose: 60 mls/hr Cefazolin Sodium 1,000 mg/ (Sodium Chloride) 100 mls @ 100 mls/hr IVPB Q8H [facility]; Protocol Last Admin: 09/21/18 14:52 Dose: 100 mls/hr Dextrose (Dextrose 5% In Water 1000 Ml) 1,000 mls @ 0 mls/hr IV .Q0M PRN; Protocol PRN Reason: Hypoglycemia Protocol Insulin Glargine (Lantus) 30 unit SC [facility] Last Admin: 09/20/18 22:42 Dose: 30 units Insulin Human Regular (Novolin R) 0 unit SC [facility]; Protocol Last Admin: 09/21/18 17:18 Dose: 3 units Ketorolac Tromethamine (Toradol) 30 mg IVP Q6 PRN PRN Reason: pain 8-10 Stop: 09/25/18 14:08 Last Admin: 09/21/18 08:56 Dose: 30 mg Losartan Potassium (Cozaar) 50 mg PO DAILY [facility] Last Admin: 09/21/18 10:40 Dose: 50 mg Montelukast Sodium (Singulair) 10 mg PO DAILY [facility] Last Admin: 09/21/18 10:40 Dose: 10 mg Oxycodone/Acetaminophen (Percocet 5/325 Mg Tab) 2 tab PO Q4H PRN PRN Reason: pain Stop: 09/23/18 14:08 Last Admin: 09/21/18 13:22 Dose: 2 tab Pantoprazole Sodium (Protonix Inj) 40 mg IVP DAILY [facility] Last Admin: 09/21/18 10:38 Dose: 40 mg Rosuvastatin Calcium (Crestor) 10 mg PO [facility] Last Admin: 09/20/18 22:42 Dose: 10 mg - Labs Labs: 09/21/18 06:55 09/21/18 06:55 - Additional Findings Additional findings: - Constitutional Appears: Non-toxic, No Acute Distress - Head Exam Head Exam: ATRAUMATIC, NORMOCEPHALIC - Eye Exam Eye Exam: Normal appearance - ENT Exam ENT Exam: Mucous Membranes Moist Additional comments: rotted, cracked and loose posterior molar on bottom of mouth. - Neck Exam Neck Exam: absent: Lymphadenopathy, Tenderness - Respiratory Exam Respiratory Exam: Clear to Ausculation Bilateral, NORMAL BREATHING PATTERN. absent: Accessory Muscle Use, Rhonchi, Wheezes, Respiratory Distress Additional comments: binder on chest. Drain in place on left side of chest, draining blood. - Cardiovascular Exam Cardiovascular Exam: REGULAR RHYTHM, +S1, +S2 - GI/Abdominal Exam GI & Abdominal Exam: Soft, Normal Bowel Sounds. absent: Distended, Firm, Guarding, Rigid, Tenderness - Extremities Exam Extremities Exam: absent: Calf Tenderness, Pedal Edema - Neurological Exam Neurological Exam: Alert, Awake, Oriented x3 - Psychiatric Exam Psychiatric exam: Normal Affect, Normal Mood - Skin Skin Exam: Dry, Warm Assessment and Plan - Assessment and Plan (Free Text) Assessment: Patient is a 53 yo female w/PMH of Breast Cacer s/p left lumpectomy and axillary node dissection. ER [place] negative. HER 2 positive Breast Cancer (HER2 Positive) s/p Left Modified Radical Mastectomy, POD #1 General Surgery (primary team), Dr. Sanz * portacath in aM; NPO; Cefazolin IVPB q8h; oxycodone 2 tab po q4h prn; NS @ 60mls/hr Hem/Onc consult, Dr. Lopez * Patient follows up for with a physician in Dr. Lopez's office as a primary. * Dr. Lopez placed on consult to make sure patient has appropriate follow up care of her disease. Hx of Insulin Dependent Diabetes Type 2 accuchecks [facility] hypoglycemic protocol Medications: * Lantus 30 units SC HS * Glipizide 10 mg PO daily * ISS ACHS - medium Hx of Hypertension continue to monitor Medications: * Losartan 50 mg PO daily Hx of Hyperlipidemia Medications: * Crestor 10 mg PO HS Hx of PAD home Aspirin on hold - restart per primary Hx of Asthma Recommend outpatient PTFs * patient reports using albuterol nebulizer every morning and albuterol inhaler once or twice every day. Patient reports previous adverse effects with use of Advair Diskus. Medications: * Duoneb q6h prn * Albuterol 1 puff q4h prn * Montelukast 10mg PO daily Dental Issue After discussion with patient, patient's tooth became loose upon waking up from surgery. Per anesthesia note, * Patient states that tooth was fractured and half missing for a while now. She states her dentist told her it had to be removed but that she did not get around to scheduling an appointment yet. Most likely possibility: during frank rgence, pt involuntarily bit down and loosened already rotting tooth. Advised to contact dentist immediately upon discharge. In meantime, soft diet ordered and advised not to chew anything. Patient is to follow up with Dentist immediately upon discharge to have tooth removed. PPx DVT: Lovenox 30mg SC GI : Protonix 40mg IVP daily Case discussed with Dr. Harpreet Walton PGY1 <Harpreet Delcid J - Last Filed: 09/21/18 19:40> Objective - Vital Signs/Intake and Output Vital Signs (last 24 hours): Temp Pulse Resp BP Pulse Ox 98.6 F 90 20 100/61 96 09/21/18 15:10 09/21/18 15:10 09/21/18 15:10 09/21/18 15:10 09/21/18 15:10 - Medications Medications: Current Medications Albuterol (Ventolin Hfa 90 Mcg/Actuation (8 G)) 1 puff IH RQ4 PRN PRN Reason: Shortness of Breath Albuterol/Ipratropium (Duoneb 3 Mg/0.5 Mg (3 Ml) Ud) 3 ml INH RQ6 PRN PRN Reason: Wheezing/SOB Dextrose (Dextrose 50% Inj) 0 ml IV STAT PRN; Protocol PRN Reason: Hypoglycemia Protocol Dextrose (Glutose 15) 0 gm PO ONCE PRN; Protocol PRN Reason: Hypoglycemia Protocol Docusate Sodium (Colace) 100 mg PO BID [facility] Last Admin: 09/21/18 17:14 Dose: 100 mg Enoxaparin Sodium (Lovenox) 30 mg SC 1000,2200 [facility] Last Admin: 09/21/18 11:47 Dose: Not Given Glipizide (Glucotrol) 10 mg PO DAILY [facility] Last Admin: 09/21/18 10:40 Dose: 10 mg Glucagon (Glucagen Diagnostic Kit) 0 mg IM STAT PRN; Protocol PRN Reason: Hypoglycemia Protocol Sodium Chloride (Sodium Chloride 0.45%) 1,000 mls @ 60 mls/hr IV .[id number] [facility] Last Admin: 09/20/18 22:40 Dose: 60 mls/hr Cefazolin Sodium 1,000 mg/ (Sodium Chloride) 100 mls @ 100 mls/hr IVPB Q8H [facility]; Protocol Last Admin: 09/21/18 14:52 Dose: 100 mls/hr Dextrose (Dextrose 5% In Water 1000 Ml) 1,000 mls @ 0 mls/hr IV .Q0M PRN; Protocol PRN Reason: Hypoglycemia Protocol Insulin Glargine (Lantus) 30 unit SC [facility] Last Admin: 09/20/18 22:42 Dose: 30 units Insulin Human Regular (Novolin R) 0 unit SC [facility]; Protocol Last Admin: 09/21/18 17:18 Dose: 3 units Ketorolac Tromethamine (Toradol) 30 mg IVP Q6 PRN PRN Reason: pain 8-10 Stop: 09/25/18 14:08 Last Admin: 09/21/18 08:56 Dose: 30 mg Losartan Potassium (Cozaar) 50 mg PO DAILY [facility] Last Admin: 09/21/18 10:40 Dose: 50 mg Montelukast Sodium (Singulair) 10 mg PO DAILY [facility] Last Admin: 09/21/18 10:40 Dose: 10 mg Oxycodone/Acetaminophen (Percocet 5/325 Mg Tab) 2 tab PO Q4H PRN PRN Reason: pain Stop: 09/23/18 14:08 Last Admin: 09/21/18 13:22 Dose: 2 tab Pantoprazole Sodium (Protonix Inj) 40 mg IVP DAILY [facility] Last Admin: 09/21/18 10:38 Dose: 40 mg Rosuvastatin Calcium (Crestor) 10 mg PO HS [facility] Last Admin: 09/20/18 22:42 Dose: 10 mg - Labs Labs: 09/21/18 06:55 09/21/18 06:55 Attending/Attestation - Attestation I have personally seen and examined this patient.: Yes I have fully participated in the care of the patient.: Yes I have reviewed all pertinent clinical information, including history, physical exam and plan: Yes Notes (Text): 09/21/18 19:36 Patient was seen and examined at 8:15 AM Care of this patient was gone over in detail with resident Dr. Walton. Also on ROS: Soreness at the left breast surgical site Moving bowels normally Had some wheezing this morning but stated that this usually happens to her Also on Exam: Scattered fainty end expiratory wheezing Speaking in full sentences NO signs of respiratory distress Spoke with Daughter over the phone at patient's request and confirmed that [employer] Dr. Shawanda Lopez has spoken to family as well. Daughter and patient understand that they will need to follow up with Dr. Lopez for Chemotherapy Tx. Harpreet Delcid D.O.
[2018-09-21] MEDS: Albuterol-Ipratrop 3 mg / 0.5 (3 ml) UD INH PRN (20:10)
[2018-09-21] MEDS: (Lantus) Insulin Glargine, Recombinant SC SCH (21:29)
--- NOTE | 2018-09-21 22:48 | CP.PCM.PN ---
Subjective - Date & Time of Evaluation Date of Evaluation: 09/21/18 Time of Evaluation: 21:00 - Subjective Subjective: No complaints, portacath placement in AM. Objective - Vital Signs/Intake and Output Vital Signs (last 24 hours): Temp Pulse Resp BP Pulse Ox 98.6 F 94 H 20 100/61 96 09/21/18 15:10 09/21/18 20:13 09/21/18 15:10 09/21/18 15:10 09/21/18 15:10 Intake and Output: 09/21/18 09/22/18 18:59 06:59 Intake Total 720 Output Total 30 Balance 690 - Medications Medications: Current Medications Albuterol (Ventolin Hfa 90 Mcg/Actuation (8 G)) 1 puff IH RQ4 PRN PRN Reason: Shortness of Breath Albuterol/Ipratropium (Duoneb 3 Mg/0.5 Mg (3 Ml) Ud) 3 ml INH RQ6 PRN PRN Reason: Wheezing/SOB Last Admin: 09/21/18 20:10 Dose: 3 ml Dextrose (Dextrose 50% Inj) 0 ml IV STAT PRN; Protocol PRN Reason: Hypoglycemia Protocol Dextrose (Glutose 15) 0 gm PO ONCE PRN; Protocol PRN Reason: Hypoglycemia Protocol Docusate Sodium (Colace) 100 mg PO BID [facility] Last Admin: 09/21/18 17:14 Dose: 100 mg Enoxaparin Sodium (Lovenox) 30 mg SC 1000,2200 [facility] Last Admin: 09/21/18 21:30 Dose: 30 mg Glipizide (Glucotrol) 10 mg PO DAILY [facility] Last Admin: 09/21/18 10:40 Dose: 10 mg Glucagon (Glucagen Diagnostic Kit) 0 mg IM STAT PRN; Protocol PRN Reason: Hypoglycemia Protocol Sodium Chloride (Sodium Chloride 0.45%) 1,000 mls @ 60 mls/hr IV .[id number] [facility] Last Admin: 09/20/18 22:40 Dose: 60 mls/hr Cefazolin Sodium 1,000 mg/ (Sodium Chloride) 100 mls @ 100 mls/hr IVPB Q8H [facility]; Protocol Last Admin: 09/21/18 21:34 Dose: 100 mls/hr Dextrose (Dextrose 5% In Water 1000 Ml) 1,000 mls @ 0 mls/hr IV .Q0M PRN; Protocol PRN Reason: Hypoglycemia Protocol Insulin Glargine (Lantus) [address] [facility] Last Admin: 09/21/18 21:29 Dose: 30 units Insulin Human Regular (Novolin R) 0 unit SC [facility]; Protocol Last Admin: 09/21/18 21:29 Dose: 2 units Ketorolac Tromethamine (Toradol) 30 mg IVP Q6 PRN PRN Reason: pain 8-10 Stop: 09/25/18 14:08 Last Admin: 09/21/18 21:28 Dose: 30 mg Losartan Potassium (Cozaar) 50 mg PO DAILY [facility] Last Admin: 09/21/18 10:40 Dose: 50 mg Montelukast Sodium (Singulair) 10 mg PO DAILY [facility] Last Admin: 09/21/18 10:40 Dose: 10 mg Oxycodone/Acetaminophen (Percocet 5/325 Mg Tab) 2 tab PO Q4H PRN PRN Reason: pain Stop: 09/23/18 14:08 Last Admin: 09/21/18 13:22 Dose: 2 tab Pantoprazole Sodium (Protonix Inj) 40 mg IVP DAILY [facility] Last Admin: 09/21/18 10:38 Dose: 40 mg Rosuvastatin Calcium (Crestor) [address] [facility] Last Admin: 09/21/18 21:28 Dose: 10 mg - Labs Labs: 09/21/18 06:55 09/21/18 06:55 - Head Exam Head Exam: ATRAUMATIC - Eye Exam Eye Exam: Normal appearance - ENT Exam ENT Exam: Mucous Membranes Dry - Respiratory Exam Respiratory Exam: NORMAL BREATHING PATTERN - Cardiovascular Exam Cardiovascular Exam: +S1, +S2 - GI/Abdominal Exam GI & Abdominal Exam: Normal Bowel Sounds Assessment and Plan (1) Breast cancer Assessment & Plan: s/p modified mastectomy portacath placement outpatient chemotherapy + HER2 blockade Status: Acute (2) Anemia Assessment & Plan: surgical blood loss Status: Acute
[2018-09-21] MEDS: Sodium Chloride 0.45% 1,000 ML IV SCH (23:49)
[2018-09-22] MEDS: Albuterol-Ipratrop 3 mg / 0.5 (3 ml) UD INH PRN ×2 (01:35→23:57)
--- NOTE | 2018-09-22 07:37 | CP.PCM.PN ---
<Meliton Miller - Last Filed: 09/22/18 11:09> Subjective - Date & Time of Evaluation Date of Evaluation: 09/22/18 Time of Evaluation: 07:36 - Subjective Subjective: PGY1 Medicine Progress Note for Dr. Delcid Patient was seen and evaluated at bedside this morning. No acute events overnight. No complaints today. Patient otherwise denies chest pain, shortness of breath, abdominal pain, headache, nausea, vomiting, and/or diarrhea. Objective - Vital Signs/Intake and Output Vital Signs (last 24 hours): Temp Pulse Resp BP Pulse Ox 98.3 F 87 20 130/86 95 09/22/18 04:23 09/22/18 04:23 09/22/18 04:23 09/22/18 04:23 09/22/18 04:23 Intake and Output: 09/22/18 09/22/18 06:59 18:59 Intake Total 1200 Output Total 50 Balance 1150 - Medications Medications: Current Medications Albuterol (Ventolin Hfa 90 Mcg/Actuation (8 G)) 1 puff IH RQ4 PRN PRN Reason: Shortness of Breath Albuterol/Ipratropium (Duoneb 3 Mg/0.5 Mg (3 Ml) Ud) 3 ml INH RQ6 PRN PRN Reason: Wheezing/SOB Last Admin: 09/22/18 01:35 Dose: 3 ml Dextrose (Dextrose 50% Inj) 0 ml IV STAT PRN; Protocol PRN Reason: Hypoglycemia Protocol Dextrose (Glutose 15) 0 gm PO ONCE PRN; Protocol PRN Reason: Hypoglycemia Protocol Docusate Sodium (Colace) 100 mg PO BID [facility] Last Admin: 09/21/18 17:14 Dose: 100 mg Enoxaparin Sodium (Lovenox) 30 mg SC 1000,2200 [facility] Last Admin: 09/21/18 21:30 Dose: 30 mg Glipizide (Glucotrol) 10 mg PO DAILY [facility] Last Admin: 09/21/18 10:40 Dose: 10 mg Glucagon (Glucagen Diagnostic Kit) 0 mg IM STAT PRN; Protocol PRN Reason: Hypoglycemia Protocol Sodium Chloride (Sodium Chloride 0.45%) 1,000 mls @ 60 mls/hr IV .[id number] [facility] Last Admin: 09/21/18 23:49 Dose: 60 mls/hr Cefazolin Sodium 1,000 mg/ (Sodium Chloride) 100 mls @ 100 mls/hr IVPB Q8H [facility]; Protocol Last Admin: 09/22/18 06:19 Dose: 100 mls/hr Dextrose (Dextrose 5% In Water 1000 Ml) 1,000 mls @ 0 mls/hr IV .Q0M PRN; Protocol PRN Reason: Hypoglycemia Protocol Insulin Glargine (Lantus) 30 unit SC [facility] Last Admin: 09/21/18 21:29 Dose: 30 units Insulin Human Regular (Novolin R) 0 unit SC [facility]; Protocol Last Admin: 09/21/18 21:29 Dose: 2 units Ketorolac Tromethamine (Toradol) 30 mg IVP Q6 PRN PRN Reason: pain 8-10 Stop: 09/25/18 14:08 Last Admin: 09/22/18 06:18 Dose: 30 mg Losartan Potassium (Cozaar) 50 mg PO DAILY [facility] Last Admin: 09/21/18 10:40 Dose: 50 mg Montelukast Sodium (Singulair) 10 mg PO DAILY [facility] Last Admin: 09/21/18 10:40 Dose: 10 mg Oxycodone/Acetaminophen (Percocet 5/325 Mg Tab) 2 tab PO Q4H PRN PRN Reason: pain Stop: 09/23/18 14:08 Last Admin: 09/21/18 13:22 Dose: 2 tab Pantoprazole Sodium (Protonix Inj) 40 mg IVP DAILY [facility] Last Admin: 09/21/18 10:38 Dose: 40 mg Rosuvastatin Calcium (Crestor) 10 mg PO [facility] Last Admin: 09/21/18 21:28 Dose: 10 mg - Labs Labs: 09/21/18 06:55 09/21/18 06:55 - Additional Findings Additional findings: - Constitutional Appears: Non-toxic, No Acute Distress - Head Exam Head Exam: ATRAUMATIC, NORMOCEPHALIC - Eye Exam Eye Exam: Normal appearance - ENT Exam ENT Exam: Mucous Membranes Moist Additional comments: rotted, cracked and loose posterior molar on bottom of mouth. - Neck Exam Neck Exam: absent: Lymphadenopathy, Tenderness - Respiratory Exam Respiratory Exam: Clear to Ausculation Bilateral, NORMAL BREATHING PATTERN. absent: Accessory Muscle Use, Rhonchi, Wheezes, Respiratory Distress Additional comments: binder on chest. Drain in place on left side of chest, draining blood. - Cardiovascular Exam Cardiovascular Exam: REGULAR RHYTHM, +S1, +S2 - GI/Abdominal Exam GI & Abdominal Exam: Soft, Normal Bowel Sounds. absent: Distended, Firm, Guarding, Rigid, Tenderness - Extremities Exam Extremities Exam: absent: Calf Tenderness, Pedal Edema - Neurological Exam Neurological Exam: Alert, Awake, Oriented x3 - Psychiatric Exam Psychiatric exam: Normal Affect, Normal Mood - Skin Skin Exam: Dry, Warm Assessment and Plan - Assessment and Plan (Free Text) Assessment: Patient is a 53 yo female w/ PMH of Breast Cancer s/p left lumpectomy and axill clarita node dissection. ER [place] negative. HER 2 positive. Medicine Team instructions for Dr. Sanz to include in his discharge instructions: 1) schedule follow-up with Oncologist Dr. Artur Lopez to discuss/arrange chemotherapy by calling 2) Restart Aspirin ONLY IF CLEARED to do so by Dr. Sanz 3) Follow-up with your Primary Care Physician in 7 days Patient provided with Rx for the following medications: - Lantus 100 units/mL 30 units SC at 10PM Dispense 10mL vial - Glipizide 10mg 1 tab PO daily (at 08:30AM) #30 - Losartan 50mg 1 tab PO daily at 08:00AM #30 - Atorvastatin 20mg 1 tab PO daily at 08:00PM #30 - Albuterol 90mg, 2 PO inhalations Q6H PRN shortness of breath, Dispense #1 - Montelukast 10mg 1 tab PO daily at 08:00PM #30 Breast Cancer (HER2 Positive) s/p Left Modified Radical Mastectomy 09/20/18 - General Surgery (primary team), Dr. Sanz * portacath in aM; NPO; Cefazolin IVPB q8h; oxycodone 2 tab po q4h prn; NS @ 60mls/hr - Hem/Onc consult, Dr. Lopez * Patient follows up for with a physician in Dr. Lopez's office as a primary. * Dr. Lopez placed on consult to make sure patient has appropriate follow up care of her disease. Hx of Insulin Dependent Diabetes Type 2 - accuchecks ACHS - hypoglycemic protocol - Medications: * Lantus 30 units SC HS * Glipizide 10 mg PO daily * ISS ACHS - medium Hx of Hypertension - continue to monitor - Medications: * Losartan 50 mg PO daily Hx of Hyperlipidemia - Medications: * Crestor 10 mg PO HS Hx of PAD - home Aspirin on hold - restart per primary Hx of Asthma - Recommend outpatient PTFs * patient reports using albuterol nebulizer every morning and albuterol inhaler once or twice every day. Patient reports previous adverse effects with use of Advair Diskus. - Medications: * Duoneb q6h prn * Albuterol 1 puff q4h prn * Montelukast 10mg PO daily Dental Issue - After discussion with patient, patient's tooth became loose upon waking up from surgery. Per anesthesia note, * Patient states that tooth was fractured and half missing for a while now. She states her dentist told her it had to be removed but that she did not get around to scheduling an appointment yet. Most likely possibility: during emergence, pt involuntarily bit down and loosened already rotting tooth. Advised to contact dentist immediately upon discharge. In meantime, soft diet ordered and advised not to chew anything. - Patient is to follow up with Dentist immediately upon discharge to have tooth removed PPx DVT: Lovenox 30mg SC GI : Protonix 40mg IVP daily Thank you for your consultation and for allowing us to participate in the care of your Patient. Please re-consult as needed. Case discussed with Dr. Harpreet Miller PGY1 <Harpreet Delcid - Last Filed: 09/22/18 19:32> Objective - Vital Signs/Intake and Output Vital Signs (last 24 hours): Temp Pulse Resp BP Pulse Ox 97.7 F 96 H 20 148/83 97 09/22/18 18:21 09/22/18 18:21 09/22/18 18:21 09/22/18 18:21 09/22/18 18:21 Intake and Output: 09/22/18 09/23/18 18:59 06:59 Intake Total 1480 Output Total 40 Balance 1440 - Medications Medications: Current Medications Albuterol (Ventolin Hfa 90 Mcg/Actuation (8 G)) 1 puff IH RQ4 PRN PRN Reason: Shortness of Breath Albuterol/Ipratropium (Duoneb 3 Mg/0.5 Mg (3 Ml) Ud) 3 ml INH RQ6 PRN PRN Reason: Wheezing/SOB Last Admin: 09/22/18 01:35 Dose: 3 ml Dextrose (Dextrose 50% Inj) 0 ml IV STAT PRN; Protocol PRN Reason: Hypoglycemia Protocol Dextrose (Glutose 15) 0 gm PO ONCE PRN; Protocol PRN Reason: Hypoglycemia Protocol Docusate Sodium (Colace) 100 mg PO BID [facility] Last Admin: 09/22/18 18:15 Dose: 100 mg Enoxaparin Sodium (Lovenox) 30 mg SC 1000,2200 [facility] Last Admin: 09/22/18 13:26 Dose: Not Given Glipizide (Glucotrol) 10 mg PO DAILY [facility] Last Admin: 09/22/18 13:26 Dose: Not Given Glucagon (Glucagen Diagnostic Kit) 0 mg IM STAT PRN; Protocol PRN Reason: Hypoglycemia Protocol Sodium Chloride (Sodium Chloride 0.45%) 1,000 mls @ 60 mls/hr IV .[id number] [facility] Last Admin: 09/21/18 23:49 Dose: 60 mls/hr Cefazolin Sodium 1,000 mg/ (Sodium Chloride) 100 mls @ 100 mls/hr IVPB Q8H [facility]; Protocol Last Admin: 09/22/18 14:40 Dose: 100 mls/hr Dextrose (Dextrose 5% In Water 1000 Ml) 1,000 mls @ 0 mls/hr IV .Q0M PRN; Protocol PRN Reason: Hypoglycemia Protocol Lactated Ringer's (Lactated Ringer's) 1,000 mls @ 100 mls/hr IV .Q10H [facility] Last Admin: 09/22/18 18:16 Dose: 100 mls/hr Insulin Glargine (Lantus) 30 unit SC HS [facility] Last Admin: 09/21/18 21:29 Dose: 30 units Insulin Human Regular (Novolin R) 0 unit SC [facility]; Protocol Last Admin: 09/22/18 18:16 Dose: Not Given Losartan Potassium (Cozaar) 50 mg PO DAILY [facility] Last Admin: 09/22/18 13:26 Dose: Not Given Montelukast Sodium (Singulair) 10 mg PO DAILY [facility] Last Admin: 09/22/18 13:27 Dose: Not Given Oxycodone/Acetaminophen (Percocet 5/325 Mg Tab) 2 tab PO Q4H PRN PRN Reason: pain Stop: 09/23/18 14:08 Last Admin: 09/21/18 13:22 Dose: 2 tab Pantoprazole Sodium (Protonix Inj) 40 mg IVP DAILY [facility] Last Admin: 09/22/18 13:27 Dose: Not Given Rosuvastatin Calcium (Crestor) 10 mg PO HS [facility] Last Admin: 09/21/18 21:28 Dose: 10 mg - Labs Labs: 09/22/18 07:41 09/22/18 07:41 Attending/Attestation - Attestation I have personally seen and examined this patient.: Yes I have fully participated in the care of the patient.: Yes I have reviewed all pertinent clinical information, including history, physical exam and plan: Yes Notes (Text): 09/22/18 19:31 Patient was seen and examined at 8 AM Care of this patient and discharge instructions and prescriptions were gone over with Resident Dr. Miller. Harpreet Delcid D.O.
[2018-09-22 07:50] LABS: BASO % 0.4 % (0.0-2.0); EOS # 0.5 K/uL (0.0-0.7); EOS % 6.2 % (0.0-4.0); HEMOGLOBIN 10.2 g/dL (11.0-16.0); LYMPH % 23.8 % (20.0-40.0); MEAN CELL VOLUME 83.9 fL (81.0-99.0); MEAN CORPUSCULAR HEMOGLOBIN 27.3 pg (27.0-31.0); MEAN CORPUSCULAR HGB CONC 32.6 g/dL (33.0-37.0); MEAN PLATELET VOLUME 9.6 fL (7.2-11.7); MONO # 0.5 K/uL (0.0-0.8); MONO % 6.5 % (0.0-10.0); NEUT # 5.3 K/uL (1.8-7.0); NEUT % 63.1 % (50.0-75.0); RBC 3.73 Mil/uL (3.80-5.20); RED CELL DISTRIBUTION WIDTH 15.9 % (11.5-14.5); WHITE BLOOD COUNT 8.4 K/uL (4.8-10.8)
[2018-09-22 08:08] LABS: ALB/GLOB RATIO 1.2 (1.0-2.1); ALBUMIN 3.1 g/dL (3.5-5.0); ALT/SGPT 9 U/L (9-52); AST/SGOT 16 U/L (14-36); BLOOD UREA NITROGEN 10 mg/dL (7-17); CALCIUM 8.2 mg/dl (8.6-10.4); GFR NON-AFRICAN AMERICAN > 60
[2018-09-22] MEDS: (Novolin R) Insulin Human Regular 100 units/ml vial SC SCH ×4 (08:24→22:19)
[2018-09-22] MEDS: Enoxaparin 30 mg Syringe SC SCH ×2 (13:26→21:13)
[2018-09-22] MEDS ORDERED: Bupivacaine 0.25% 20 ML INJ IJ ONE (15:21)
[2018-09-22] MEDS ORDERED: HEPARIN-NS 5,000 UNITS/500 ML 5,000 UNIT/500 ML BAG IV ONE (15:21)
[2018-09-22] MEDS ORDERED: Propofol 10 mg/ml Inj (20 ML) ONE (15:24)
[2018-09-22] MEDS ORDERED: Sodium Chloride 0.9% 1,000 ML IV ONE (16:22)
[2018-09-22] MEDS ORDERED: Lactated Ringer's 1,000 ML IV ONE (16:22)
--- NOTE | 2018-09-22 16:46 | RAD ---
Date of service: 09/22/2018 PROCEDURE: Intraoperative Fluoroscopy. HISTORY: BREAST CA FINDINGS: Fluoroscopic assistance was provided. Fluoroscopy time = 10 sec. Radiation dose = [id number] mGy. Please refer to the operative report from ESTEFANÍA Hollins.
--- NOTE | 2018-09-22 17:37 | RAD ---
Date of service: 09/22/2018 HISTORY: SP portacath COMPARISON: Made with chest radiograph 07/16/2018 FINDINGS: Interval placement right IJ MediPort with tip in the SVC LUNGS: The central pulmonary vasculature appears increased which is likely due to semi-erect patient positioning and low lung volumes. PLEURA: No significant pleural effusion identified, no pneumothorax apparent. CARDIOVASCULAR: No significant aortic atherosclerotic calcification present. Heart is borderline/mildly enlarged.. OSSEOUS STRUCTURES: No significant abnormalities. VISUALIZED UPPER ABDOMEN: Normal. OTHER FINDINGS: None. IMPRESSION: Interval placement right IJ Port-A-Cath with tip in the SVC. Slight increased pulmonary vascular congestive changes and cardiomegaly part of which is likely due to semi-erect patient positioning.
[2018-09-22] MEDS ORDERED: Sodium Chloride 0.9% 500 ML IV ONE (18:00)
[2018-09-22] MEDS: Lactated Ringer's 1,000 ML IV SCH (18:16)
--- NOTE | 2018-09-22 19:28 | CP.PCM.PCO ---
Physician Communication Note - Physician Communication Note Physician Communication Note: Please see above
[2018-09-22] MEDS: Oxycodone/Acetaminophen 5/325 mg Tab PO PRN (20:54)
[2018-09-22] MEDS: (Lantus) Insulin Glargine, Recombinant SC SCH (22:19)
--- NOTE | 2018-09-23 02:27 | OP ---
PROCEDURE DATE: 09/22/2018 PREOPERATIVE DIAGNOSIS: Breast cancer. POSTOPERATIVE DIAGNOSIS: Breast cancer. PROCEDURE PERFORMED: Insertion of right internal jugular subcutaneous port. SURGEON: Chino Sanz MD ANESTHESIA: General. BLOOD LOSS: 30 mL. POSTOPERATIVE CONDITION: Stable. INDICATIONS FOR SURGERY: This is a 53-year-old female with a history of breast cancer who is status post left modified radical mastectomy. She now will undergo Port-A-Cath placement prior to discharge from the hospital. DESCRIPTION OF PROCEDURE: The patient was taken to the operating room. General anesthesia was administered. The right internal jugular vein was cannulated, and a guidewire was inserted into the vena cava which was confirmed fluoroscopically. Next, the dissection was carried out on the chest wall, creating a tissue flap pocket by making an incision and using dissection primarily with the Bovie. While dissection was carried out anteriorly, there was a fair amount of bleeding noted from what appeared to be the thoracic portion of the cephalic vein. The vein was quickly and carefully mobilized and repaired using a 6-0 Prolene. A Doppler was used to confirm blood flow within the brachial cephalic vein which was noted. Dissection continued and a catheter was then placed, was then tunneled into the neck puncture site. The catheter was placed over an introducer into the superior vena cava. This was confirmed fluoroscopically under direct guidance. This was confirmed fluoroscopically. The catheter was connected to a subcutaneous port which was placed in a tissue flap pocket and closed using 4-0 Monocryl subcuticular sutures and glue. The catheter was flushed, found to be widely patent. A postoperative chest x-ray was obtained in the recovery room. The patient tolerated the procedure well and returned to recovery room in stable condition. Chino Sanz MD
[2018-09-23] MEDS: Albuterol-Ipratrop 3 mg / 0.5 (3 ml) UD INH PRN ×2 (05:59→07:40)
[2018-09-23] MEDS: Sodium Chloride 0.45% 1,000 ML IV SCH (06:11)
[2018-09-23] MEDS: Lactated Ringer's 1,000 ML IV SCH ×2 (07:43→07:45)
[2018-09-23 08:24] VITALS: BP 137/82; PULSE 18; RESP 18; TEMP 97.7; O2SAT 94
[2018-09-23] MEDS: Enoxaparin 30 mg Syringe SC SCH (09:16)
[2018-09-23] MEDS: (Novolin R) Insulin Human Regular 100 units/ml vial SC SCH (09:19)
--- NOTE | 2018-09-25 10:51 | NM ---
Date of service: 09/21/2018 PROCEDURE: Whole Body Bone Scan HISTORY: Hx Breast Ca COMPARISON: None available. TECHNIQUE: Following administration of 24.5 miCu of Tc MDP multiplanar whole body images were obtained. FINDINGS: Evidence for bony metastatic disease: None. Degenerative uptake: None. Physiologic uptake: Normal physiologic activity in the kidneys. Other findings: Increased uptake in the right anthony mandible likely dental disease. IMPRESSION: No evidence of bony metastatic disease.
== END 2018-09-23 12:13 | disposition home or self-care (01) | DRG 577 ==
LOC: C.SDS 10:14 → C.9S 14:07 → C.6T 17:46
PROVIDERS: ADMIT Surgery; ATTEND Surgery
PROC: 0HX5XZZ Transfer Chest Skin, External Approach (ICD-10-PCS; 2018-09-20)
PROC: 07B60ZX Excision of Left Axillary Lymphatic, Open Approach, Diagnostic (ICD-10-PCS; 2018-09-20)
PROC: 0HTU0ZZ Resection of Left Breast, Open Approach (ICD-10-PCS; principal; 2018-09-20 12:00)
PROC: 0JH60WZ Insertion of Totally Implantable Vascular Access Device into Chest Subcutaneous Tissue and Fascia, Open Approach (ICD-10-PCS; 2018-09-22)
PROC: 02HV33Z Insertion of Infusion Device into Superior Vena Cava, Percutaneous Approach (ICD-10-PCS; 2018-09-22)
DX: C50.512 Malignant neoplasm of lower-outer quadrant of left female breast (principal); C77.3 Secondary and unspecified malignant neoplasm of axilla and upper limb lymph nodes; D62 Acute posthemorrhagic anemia; I10 Essential (primary) hypertension; E78.00 Pure hypercholesterolemia, unspecified; J45.909 Unspecified asthma, uncomplicated; F32.9 Major depressive disorder, single episode, unspecified; E11.51 Type 2 diabetes mellitus with diabetic peripheral angiopathy without gangrene; Z79.4 Long term (current) use of insulin; Z87.891 Personal history of nicotine dependence; Z17.1 Estrogen receptor negative status [ER-]